=== PATIENT | male | born 1960 | race Caucasian/White ===

== ENCOUNTER 2017-02-25 11:36 | Inpatient (IN) | payer SELFPAY ==
[~2017-02-25] VITALS: Ht 182.9 cm; Wt 98.5 kg
[~2017-02-25 11:36] MED LIST: AMLO5TAB2 PO; ASPI325T4 PO; ATOR40TA59 PO; CARV6.25 PO; CITA40TA12 PO; CLOP75TA27 PO; GABA-585 PO; GLIM2TAB2 PO; ISOS60TA2 PO; LEVO150T5 PO; LIRA0.6P2 SQ; LISI-334 PO; MAGN400T3 PO; METF-620 PO; OMEG1CAP38 PO; OXYC5CAP3 PO; PANT40TA5 PO; RANO10002 PO; SIMV20TA3 PO
--- NOTE | 2017-02-25 11:46 | PHYS DOC ---
Adult General HPI HPI Patient is a 56 year old male presenting to the emergency department for evaluation of chest pain that started approximately 10:00 this morning while he was getting dressed and ready for his day. He says that it is a pressure in the center of the chest that made him short of breath diaphoretic and nauseated. He was given nitroglycerin which took his pain from intense down to a 5. 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 Patient was given 325 mg of aspirin by EMS. He was admitted to this hospital last week for a left thalamic stroke. Review of Systems Review of Systems Constitutional: Denies fever or chills [] Eyes: Denies change in visual acuity, redness, or eye pain [] HENT: Denies nasal congestion or sore throat [] Respiratory: Denies cough. + shortness of breath [] Cardiovascular: + CP GI: Denies abdominal pain. + nausea. No vomiting, bloody stools or diarrhea [] : Denies dysuria or hematuria [] Musculoskeletal: Denies back pain or joint pain [] Integument: Denies rash or skin lesions [] Neurologic: Denies headache, focal weakness or sensory changes [] Current Medications Current Medications Current Medications Medications (Trade) Dose Ordered Sig/[facility] Start Time Stop Time Status Last Admin Dose Admin Morphine Sulfate 5 mg 1X ONCE 02/25/17 12:00 02/25/17 12:01 DC 02/25/17 12:38 5 MG Allergies Allergies Allergies Coded Allergies Type Severity Reaction Last Updated Verified No Known Drug Allergies 02/17/17 No Physical Exam Physical Exam Constitutional: Well developed, well nourished, no acute distress, non-toxic appearance. [] HENT: Normocephalic, atraumatic, bilateral external ears normal, oropharynx moist, no oral exudates, nose normal. [] Eyes: PERRLA, EOMI, conjunctiva normal, no discharge. [] Neck: Normal range of motion, no tenderness, supple, no stridor. [] Cardiovascular:Heart rate regular rhythm, no murmur [] Lungs & Thorax: Bilateral breath sounds clear to auscultation [] Abdomen: Bowel sounds normal, soft, no tenderness, no masses, no pulsatile masses. [] Skin: Warm, dry, no erythema, no rash. [] Back: No tenderness, no CVA tenderness. [] Extremities: No tenderness, no cyanosis, no clubbing, ROM intact, no edema. [] Neurologic: Alert and oriented X 3, normal motor function, normal sensory function, no focal deficits noted. [] Current Patient Data Vital Signs Vital Signs Date Time Temp Pulse Resp B/P (MAP) Pulse Ox O2 Delivery O2 Flow Rate FiO2 02/25/17 12:10 56 12 169/101 (123) 98 Room Air 02/25/17 11:36 97.6 97.6 Lab Values Laboratory Tests Test 02/25/17 11:49 02/25/17 11:53 White Blood Count 6.3 x10^3/uL (4.0-11.0) Red Blood Count 5.29 x10^6/uL (4.30-5.70) Hemoglobin 15.3 g/dL (13.0-17.5) Hematocrit 46.5 % (39.0-53.0) Mean Corpuscular Volume 88 fL (79-100) Mean Corpuscular Hemoglobin 29 pg (25-35) Mean Corpuscular Hemoglobin Concent 33 g/dL (31-37) Red Cell Distribution Width 14.8 % (11.5-14.5) H Platelet Count 223 x10^3/uL (140-400) Neutrophils (%) (Auto) 60 % (31-73) Lymphocytes (%) (Auto) 29 % (24-48) Monocytes (%) (Auto) 10 % (0-9) H Eosinophils (%) (Auto) 1 % (0-3) Basophils (%) (Auto) 0 % (0-3) Neutrophils # (Auto) 3.8 x10^3uL (1.8-7.7) Lymphocytes # (Auto) 1.8 x10^3/uL (1.0-4.8) Monocytes # (Auto) 0.6 x10^3/uL (0.0-1.1) Eosinophils # (Auto) 0.1 x10^3/uL (0.0-0.7) Basophils # (Auto) 0.0 x10^3/uL (0.0-0.2) Prothrombin Time 12.4 SEC (11.7-14.0) Prothrombin Time INR 1.0 (0.8-1.1) PTT 30 SEC (24-38) Sodium Level 138 mmol/L (136-145) Potassium Level 4.8 mmol/L (3.5-5.1) Chloride Level 100 mmol/L (98-107) Carbon Dioxide Level 27 mmol/L (21-32) Anion Gap 11 (6-14) Blood Urea Nitrogen 23 mg/dL (8-26) Creatinine 1.3 mg/dL (0.7-1.3) Estimated GFR (Cockcroft-Gault) 57.3 BUN/Creatinine Ratio 18 (6-20) Glucose Level 190 mg/dL (70-99) H Calcium Level 9.4 mg/dL (8.5-10.1) Magnesium Level Pending Total Bilirubin Pending Aspartate Amino Transferase (AST) Pending Alanine Aminotransferase (ALT) Pending Alkaline Phosphatase Pending Creatine Kinase Pending Total Protein Pending Albumin Pending Albumin/Globulin Ratio Pending Lipase Pending Ethyl Alcohol Level < 10 mg/dL (0-10) POC Troponin I 0.00 ng/ml (<0.08) Laboratory Tests 02/25/17 11:49 Laboratory Tests 02/25/17 11:49 EKG EKG Sinus bradycardia at 53 bpm with leftward axis no obvious ST elevation or depression with normal T waves. Radiology/Procedures Radiology/Procedures EXAM: Chest, single view. HISTORY: Pain. COMPARISON: 03/26/2010. FINDINGS: Frontal views of the chest are obtained. There is no infiltrate, effusion or pneumothorax. There are a few scattered granulomas. The heart is normal in size. IMPRESSION: No acute pulmonary finding. DICTATED and SIGNED BY: DEYA GRIDER MD DATE: 02/25/17 8447 Course & Med Decision Making Course & Med Decision Making Patient with symptoms typical for cardiac disease. Given patient has strong cardiac history and has typical symptoms he will be admitted to the hospital for further observation and treatment. Dragon Disclaimer Dragon Disclaimer This electronic medical record was generated, in whole or in part, using a voice recognition dictation system. Departure Departure Impression: Primary Impression: Chest pain Additional Impression: Hypertensive urgency Disposition: ADMITTED INPATIENT Admitting Physician: Addi Padilla Condition: STABLE Referrals: UNKNOWN PCP NAME (PCP) Problem Qualifiers Primary Impression: Chest pain Chest pain type: unspecified Qualified Codes: R07.9 - Chest pain, unspecified EUGENIO CARTY DO February 25, 2017 11:46
--- NOTE | 2017-02-25 11:50 | EKG ---
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
[2017-02-25] MEDS ORDERED: MORPHINE SULFATE 10 MG/ML VIAL. IV ONE (12:00)
--- NOTE | 2017-02-25 12:12 | RAD ---
EXAM: Chest, single view. HISTORY: Pain. COMPARISON: 03/26/2010. FINDINGS: Frontal views of the chest are obtained. There is no infiltrate, effusion or pneumothorax. There are a few scattered granulomas. The heart is normal in size. IMPRESSION: No acute pulmonary finding.
[2017-02-25 12:38] LABS: BASO % 0 % (0-3); EOS % 1 % (0-3); HEMATOCRIT 46.5 % (39.0-53.0); HEMOGLOBIN 15.3 g/dL (13.0-17.5); LYMPH # 1.8 x10^3/uL (1.0-4.8); LYMPH % 29 % (24-48); MEAN CORPUSCULAR HEMOGLOBIN 29 pg (25-35); MEAN CORPUSCULAR HGB CONC 33 g/dL (31-37); MEAN CORPUSCULAR VOLUME 88 fL (79-100); MONO % 10 % (0-9); NEUT % 60 % (31-73); PLATELET COUNT 223 x10^3/uL (140-400); RED BLOOD COUNT 5.29 x10^6/uL (4.30-5.70); RED CELL DISTRIBUTION WIDTH 14.8 % (11.5-14.5); WHITE BLOOD COUNT 6.3 x10^3/uL (4.0-11.0)
[2017-02-25 12:51] LABS: PROTHROMBIN TIME PATIENT 12.4 SEC (11.7-14.0)
[2017-02-25 12:57] LABS: CALCIUM 9.4 mg/dL (8.5-10.1); CREATININE 1.3 mg/dL (0.7-1.3); GFR 57.3; POTASSIUM 4.8 mmol/L (3.5-5.1)
[2017-02-25 13:03] LABS: ALBUMIN 3.6 g/dL (3.4-5.0); MAGNESIUM 1.5 mg/dL (1.8-2.4); TOTAL BILIRUBIN 0.4 mg/dL (0.2-1.0); TOTAL PROTEIN 7.2 g/dL (6.4-8.2)
--- NOTE | 2017-02-25 13:12 | ACF ---
Admission Forms Criteria CARDIOLOGY GRG Clinical Indications for Admission to Inpatient Care ( Place 'X' for any and all applicable criteria): Hospital admission is needed for appropriate care of the patient because of ANY ONE of the following (1): [ ] I. Hemodynamic instability as indicated by ALL of the following (1)(2)(3) (4)(5) [ ]a) Vital signs or other findings not as expected for chronic patient condition or baseline [ ]b) Instability indicated by ANY ONE of the following: [ ]i) Hypotension [ ]ii) Symptomatic Tachycardia unresponsive to treatment ( e.g., analgesia, fluids, sedation as indicated) [ ]iii) Inadequate perfusion indicated by ANY ONE of the following: [ ] 1) Lactic acidosis (> 2 mmol/L) [ ] 2) New abnormal capillary refill (> 3 seconds) [ ] 3) Reduced urine output [ ] 4) New altered mental status [ ]iv) Orthostatic vital sign changes unresponsive to treatment (e.g., fluids) [ ]v) IV inotropic or vasopressor medication required to maintain adequate blood pressure or perfusion [ ] II. Severe heart failure as indicated by ANY ONE of the following(17)(18) [ ]a) Respiratory distress [ ]b) Hypotension [ ]c) Anasarca (refractory to outpatient therapy) [ ]d) Cardiac arrhythmias of immediate concern [ ]e) Myocardial ischemia [ ] III. Cardiac arrhythmias or findings of immediate concern indicated by ANY ONE of the following (19)(20): [ ] a) Heart rhythms that are inherently dangerous or unstable indicated by ANY ONE of the following (21)(22)(23): [ ] i) Resuscitated ventricular fibrillation or cardiac arrest [ ] ii) Ventricular escape rhythm [ ] iii) Sustained ventricular tachycardia (30 seconds or more of ventricular rhythm at greater than 100 beats per minute) [ ] iv) Nonsustained ventricular tachycardia and ANY ONE of the following: [ ] 1) Suspected cardiac ischemia as cause or consequence of ventricular tachycardia [ ] 2) In setting of acute myocarditis [ ] b) Unstable cardiac conduction defects indicated by ANY ONE of the following(23)(24)(25) [ ] i) Type II second-degree atrioventricular block [ ]ii) Third-degree atrioventricular block [ ]iii) New-onset left bundle branch block with suspected myocardial ischemia [ ]c) Any heart rhythm and ANY ONE of the following (21)(22)(26)(27) (28) [ ] i) Continuous long-term ECG monitoring needed (e.g., initiation of drug requiring monitoring for more than 24 hours) [ ] ii) Patient has automatic implanted cardioverter defibrillator that is repeatedly firing, malfunctioning, or in need of immediate adjustment of settings beyond the scope of ambulatory or observation care [ ]d) Heart rhythms of concern due to ANY ONE of the following: [ ] i) Hypotension [ ] ii) Respiratory distress [ ] iii) Association with other significant symptoms (e.g., bradycardia with syncope or ongoing dizziness, supraventricular tachycardia with chest pain (14)(15)(17) [ ] IV. Monitoring for cardiac contusion beyond the scope of observation care needed [A](30)(31)(32) [ ] V. Surgical or device complication (e.g., valve replacement complication , pacemaker dysfunction) (35)(41)(44)(45)(46) [ ] . Inpatient palliative care needed. [B](49) Also use Inpatient Palliative Care Criteria [ ] VII. Nonbacterial thrombotic (marantic) endocarditis (36)(43)(47)(48) [X] VIII. Cardiology condition, symptom, or finding for which emergency and observation care has failed or are not considered appropriate. [ ] IX. Acute valvular disease requiring inpatient as indicated by ANY ONE of the following (41) [ ]a) Acute valvular regurgitation (42) [ ]b) Noninfectious valvulitis (43) [ ]c) Obstructive valve thrombosis [ ]d) Paravalvular leak [ ]e) Other significant valvular disorder remaining after emergency or observation level of care (as appropriate) [ ]X. Pericardial disease requiring inpatient treatment as indicated by ANY ONE of the following (33)(34)(35)(36)(37) [ ]a) Suspected tamponade (38)(39)(40) [ ]b) Hemopericardium [ ]c) Other significant pericardial disorder remaining after emergency or observation level of care (as appropriate) [ ] XI. Cardiac ischemia beyond scope of emergency and observation care. [ ] XII. Hypertension requiring inpatient treatment as indicated by ANY ONE of the following (6)(7)(8) [ ]a) SBP greater than 220 mm Hg or DBP greater than 120 mmHg despite treatment [ ]b) SBP greater than 140 mm Hg or DBP greater than 100 mm Hg with evidence of acute end organ damage as indicated by ANY ONE of the following [ ] i) Encephalopathy [ ] ii) Acute renal failure as indicated by new onset of ANY ONE of the following (9)(10)(11)(12)(13) [ ]1) 3-fold rise in serum creatinine from baseline [ ]2) Serum creatinine greater than 4 mg/dL ( 354 micromoles/L) with acute rise greater than 0.5 mg/dL (44.2 micromoles/L) [ ]3) Reduction of more than 75% in estimated glomerular filtration rate from baseline [ ]4) Estimated glomerular filtration rate less than 35 mL/min/1.73m2 (0.59 mL/sec/1.73m2) in child up to 18 years of age [ ]5) Cessation of urine output indicated by ALL of the following [ ]A. Adequate volume status [ ]B. Inadequate urine output as indicated by ANY ONE of the following [ ]a. Urine output less than 0.3 mL/kg/hr for 24 hours [ ]b. Anuria (urine output less than 0.1 mL/kg/hr) for 12 hours [ ] iii) Aortic dissection [ ] iv) Myocardial Ischemia [ ] v) Left ventricular heart failure [ ]vi) Retinal Hemorrhage [ ]vii) Other significant finding [ ]c) Hypertension in child requiring inpatient treatment as indicated by ALL of the following(14)(15)(16) [ ] i) Outpatient treatment not effective, not available, or not appropriate [ ]ii) SBP or DBP greater than 95th percentile for age [ ]iii) Evidence of acute end organ damage as indicated by ANY ONE of the following [ ]1) Altered mental status [ ]2) Acute renal failure as indicated by new onset of ANY ONE of the following(9)(10)(11)(12)(13) [ ]A. 3-fold rise in serum creatinine from baseline [ ]B. Serum creatinine greater than 4 mg/dL (354 micromoles/L) with acute rise greater than 0.5 mg/dL (44.2 micromoles/L) [ ]C. Reduction of more than 75% in estimated glomerular filtration rate from baseline [ ]D. Estimated glomerular filtration rate less than 35 mL/min/1.73m2 (0.59 mL/sec/1.73m2) in child up to 18 years of age [ ]E. Cessation of urine output indicated by ALL of the following [ ]a. Adequate volume status [ ]b. Inadequate urine output as indicated by ANY ONE of the following [ ]i) Urine output less than 0.3 mL/kg/hr for 24 hours [ ]ii) Anuria ( urine output less than 0.1 mL/kg/hr) for 12 hours [ ]3) Severe headache [ ]4) Visual disturbance [ ]5) Retinal hemorrhage [ ]6) Other significant finding [ ]XIII. Complications of transplanted heart indicated by ANY ONE of the following(61): [ ]a) Acute graft rejection requiring inpatient management (eg, intravenous immunosuppression)(62)(63) [ ]b) Acute graft heart failure indicated by ANY ONE of the following(64): [ ]i) Hemodynamic instability [ ]ii) Cardiac arrhythmias of immediate concern [ ]iii) Pulmonary edema that is very severe (eg, mechanical ventilation needed, imminent or likely, need for 100% oxygen to keep oxygen saturation above 90%) [ ]iv) Pulmonary edema that is persistent as indicated by ALL of the following: [ ]1) New need for oxygen therapy to keep oxygen saturation above 90% (or increased FiO2 need from baseline) [ ]2) Has not improved sufficiently with emergency department or observation care IV diuretics or other heart failure treatments[E] [ ]v) Altered mental status that is severe or persistent [ ]vi) Increased creatinine (new on laboratory test) with reduction of more than 50% in estimated glomerular filtration rate from baseline [ ]vii) Progressively (ongoing) rising creatinine (known from past laboratory test) with reduction of more than 25% in estimated glomerular filtration rate from baseline [ ]viii) Acute renal failure [ ]ix) Acute peripheral ischemia (eg, examination shows pulseless, cool, mottled, or cyanotic extremity) [ ]x) Pulmonary artery catheter monitoring needed [ ]xi) Other sign or symptom of heart failure requiring inpatient treatment (ie, too severe or not responsive to outpatient and observation care treatment) [ ]c) Infection requiring inpatient management (eg, Hemodynamic instability, need for intravenous antimicrobial treatment)(66)(67)(68)(69)(70) [ ]d) Cardiac allograft vasculopathy requiring inpatient management ( eg evidence of cardiac ischemia)(71) [ ]e) Other complication of transplanted heart (eg, stroke, severe pulmonary hypertension, severe valvular dysfunction) requiring inpatient management(72) The original [facility] content created by [facility] has been revised. The portions of the content which have been revised are identified through the use of italic text or in bold, and [facility] has neither reviewed nor approved the modified material. All other unmodified content is copyright [facility]. Please see references footnoted in the original [facility] edition 2016 Admission Criteria Met?: Yes TORI RENEE February 25, 2017 13:12
[2017-02-25 13:30] VITALS: BP 150/91
--- NOTE | 2017-02-25 14:36 | PDOC1 ---
History and Physical Date of Admission Date of Admission 02/25/17 Identification/Chief Complaint Chief Complaint chest pain Problems: Source Source: Chart review, Patient History of Present Illness History of Present Illness Mr. Perla is a 56 old M, who was dced here last week for 8mm left thalamic acute ischemic stroke, for chest pain for today. echo, carotid US not significant. Pt had NC before with stents, last stent was 3 years ago, another NC 1.5 years ago wo stent. He said since he went home last week, cont having tired, stable mild right side weakness, mainly right leg. Pt started to feel left side chest pain, when he sat down from the bathroom, the chest pain feels heavy, radiating to back, with left arm numbness, diaphoresis, sob, vertigo, N/V, 6/10. EMS was called, BP 190. Pt was given asa, nitro and pain is 3/10 now. EKG neg for acute change, troponin neg. Past Medical History Past Medical History cad, htn dm2 stroke Past Surgical History Past Surgical History: No pertinent history Family History Family History: Hypertension Social History ALCOHOL: none Drugs: None Current Problem List Problem List Problems Medical Problems: (1) Hypertensive urgency Status: Acute Current Medications Current Medications Current Medications Medications (Trade) Dose Ordered Sig/[facility] Start Time Stop Time Status Last Admin Dose Admin Morphine Sulfate 5 mg 1X ONCE 02/25/17 12:00 02/25/17 12:01 DC 02/25/17 12:38 5 MG Allergies Allergies Allergies Coded Allergies Type Severity Reaction Last Updated Verified No Known Drug Allergies 02/17/17 No ROS Review of System CONSTITUTIONAL: No fever or chills EYES: No recent changes SKIN: No rash or itching CARDIOVASCULAR: No chest pain, syncope, palpitations, or edema RESPIRATORY: No SOB or cough GASTROINTESTINAL: No nausea, vomiting or abdominal pain NEUROLOGICAL: No headaches or weakness ENDOCRINE: No cold or heat intolerance GENITOURINARY: No urgency or frequency of urination MUSCULOSKELETAL: No back pain or joint pain LYMPHATICS: No enlarged lymph nodes PSYCHIATRIC: No anxiety or depression Physical Exam Physical Exam GEN.: No apparent distress. Alert and oriented. HEENT: Head is normocephalic, atraumatic NECK: Supple. LUNGS: Clear to auscultation. HEART: RRR, S1, S2 present. Peripheral pulses intact ABDOMEN: Soft, nontender. Positive bowel sounds. EXTREMITIES: Without any cyanosis. right side strength, upper ext 4/5, lower ext 3/5. left side 5/5 NEUROLOGIC: Normal speech, normal tone PSYCHIATRIC: Normal affect, normal mood. SKIN: No ulcerations Vitals Vitals Vital Signs Date Time Temp Pulse Resp B/P (MAP) Pulse Ox O2 Delivery O2 Flow Rate FiO2 02/25/17 13:30 97.7 60 20 150/91 (110) 96 Room Air 97.7 Labs Labs Laboratory Tests Test 02/25/17 11:49 02/25/17 11:53 White Blood Count 6.3 x10^3/uL (4.0-11.0) Red Blood Count 5.29 x10^6/uL (4.30-5.70) Hemoglobin 15.3 g/dL (13.0-17.5) Hematocrit 46.5 % (39.0-53.0) Mean Corpuscular Volume 88 fL (79-100) Mean Corpuscular Hemoglobin 29 pg (25-35) Mean Corpuscular Hemoglobin Concent 33 g/dL (31-37) Red Cell Distribution Width 14.8 % (11.5-14.5) Platelet Count 223 x10^3/uL (140-400) Neutrophils (%) (Auto) 60 % (31-73) Lymphocytes (%) (Auto) 29 % (24-48) Monocytes (%) (Auto) 10 % (0-9) Eosinophils (%) (Auto) 1 % (0-3) Basophils (%) (Auto) 0 % (0-3) Neutrophils # (Auto) 3.8 x10^3uL (1.8-7.7) Lymphocytes # (Auto) 1.8 x10^3/uL (1.0-4.8) Monocytes # (Auto) 0.6 x10^3/uL (0.0-1.1) Eosinophils # (Auto) 0.1 x10^3/uL (0.0-0.7) Basophils # (Auto) 0.0 x10^3/uL (0.0-0.2) Prothrombin Time 12.4 SEC (11.7-14.0) Prothromb Time International Ratio 1.0 (0.8-1.1) Activated Partial Thromboplast Time 30 SEC (24-38) Sodium Level 138 mmol/L (136-145) Potassium Level 4.8 mmol/L (3.5-5.1) Chloride Level 100 mmol/L (98-107) Carbon Dioxide Level 27 mmol/L (21-32) Anion Gap 11 (6-14) Blood Urea Nitrogen 23 mg/dL (8-26) Creatinine 1.3 mg/dL (0.7-1.3) Estimated GFR (Cockcroft-Gault) 57.3 BUN/Creatinine Ratio 18 (6-20) Glucose Level 190 mg/dL (70-99) Calcium Level 9.4 mg/dL (8.5-10.1) Magnesium Level 1.5 mg/dL (1.8-2.4) Total Bilirubin 0.4 mg/dL (0.2-1.0) Aspartate Amino Transf (AST/SGOT) 10 U/L (15-37) Alanine Aminotransferase (ALT/SGPT) 19 U/L (16-63) Alkaline Phosphatase 111 U/L (46-116) Creatine Kinase 34 U/L (39-308) Troponin I Quantitative < 0.017 ng/mL (0.000-0.055) VM-Tcr-O-Type Natriuretic Peptide 29 pg/mL (0-124) Total Protein 7.2 g/dL (6.4-8.2) Albumin 3.6 g/dL (3.4-5.0) Albumin/Globulin Ratio 1.0 (1.0-1.7) Lipase 131 U/L (73-393) Ethyl Alcohol Level < 10 mg/dL (0-10) Bedside Troponin I 0.00 ng/ml (<0.08) Laboratory Tests Test 02/25/17 11:49 02/25/17 11:53 White Blood Count 6.3 x10^3/uL (4.0-11.0) Red Blood Count 5.29 x10^6/uL (4.30-5.70) Hemoglobin 15.3 g/dL (13.0-17.5) Hematocrit 46.5 % (39.0-53.0) Mean Corpuscular Volume 88 fL (79-100) Mean Corpuscular Hemoglobin 29 pg (25-35) Mean Corpuscular Hemoglobin Concent 33 g/dL (31-37) Red Cell Distribution Width 14.8 % (11.5-14.5) Platelet Count 223 x10^3/uL (140-400) Neutrophils (%) (Auto) 60 % (31-73) Lymphocytes (%) (Auto) 29 % (24-48) Monocytes (%) (Auto) 10 % (0-9) Eosinophils (%) (Auto) 1 % (0-3) Basophils (%) (Auto) 0 % (0-3) Neutrophils # (Auto) 3.8 x10^3uL (1.8-7.7) Lymphocytes # (Auto) 1.8 x10^3/uL (1.0-4.8) Monocytes # (Auto) 0.6 x10^3/uL (0.0-1.1) Eosinophils # (Auto) 0.1 x10^3/uL (0.0-0.7) Basophils # (Auto) 0.0 x10^3/uL (0.0-0.2) Prothrombin Time 12.4 SEC (11.7-14.0) Prothromb Time International Ratio 1.0 (0.8-1.1) Activated Partial Thromboplast Time 30 SEC (24-38) Sodium Level 138 mmol/L (136-145) Potassium Level 4.8 mmol/L (3.5-5.1) Chloride Level 100 mmol/L (98-107) Carbon Dioxide Level 27 mmol/L (21-32) Anion Gap 11 (6-14) Blood Urea Nitrogen 23 mg/dL (8-26) Creatinine 1.3 mg/dL (0.7-1.3) Estimated GFR (Cockcroft-Gault) 57.3 BUN/Creatinine Ratio 18 (6-20) Glucose Level 190 mg/dL (70-99) Calcium Level 9.4 mg/dL (8.5-10.1) Magnesium Level 1.5 mg/dL (1.8-2.4) Total Bilirubin 0.4 mg/dL (0.2-1.0) Aspartate Amino Transf (AST/SGOT) 10 U/L (15-37) Alanine Aminotransferase (ALT/SGPT) 19 U/L (16-63) Alkaline Phosphatase 111 U/L (46-116) Creatine Kinase 34 U/L (39-308) Troponin I Quantitative < 0.017 ng/mL (0.000-0.055) LH-Tgz-G-Type Natriuretic Peptide 29 pg/mL (0-124) Total Protein 7.2 g/dL (6.4-8.2) Albumin 3.6 g/dL (3.4-5.0) Albumin/Globulin Ratio 1.0 (1.0-1.7) Lipase 131 U/L (73-393) Ethyl Alcohol Level < 10 mg/dL (0-10) Bedside Troponin I 0.00 ng/ml (<0.08) VTE Prophylaxis Ordered VTE Prophylaxis Devices: No VTE Pharmacological Prophylaxi: Yes Assessment/Plan Assessment/Plan chest pain, need to rule out unstable angina recent 8 mm left thalamic acute ischemic CVA uncontrolled HTN h/o CAD with known 4cardiac stents on ASA 325 and PLavix DM 2 Dyslipdiemia R side weakness, with stroke previous SMoker on chantix (doen to 5-6 cigs a day now) headache with h/o migraine hypomagnesemia plan: card consult cycle CE recent Echo neg lovenox 100mg aq x1 cont home meds may need cath if cont having chest pain ptot TREVA COOPER MD February 25, 2017 14:36
[2017-02-25] MEDS ORDERED: hydrALAZINE 20 MG/ML VIAL. IVP PRN (14:45)
[2017-02-25] MEDS ORDERED: DOCUSATE SODIUM 100 MG CAPSULE. PO PRN (14:45)
[2017-02-25] MEDS ORDERED: oxyCODONE IR 5 MG TABLET PO PRN (14:45)
[2017-02-25] MEDS ORDERED: ACETAMINOPHEN 325 MG TABLET. PO PRN (14:45)
[2017-02-25] MEDS ORDERED: DEXTROSE 50% 25 GM / 50ML DISP.SYRIN. IV PRN (14:45)
[2017-02-25] MEDS ORDERED: MAGNESIUM SULFATE 2GM 50 ML IV ONE (14:45)
[2017-02-25] MEDS ORDERED: ONDANSETRON PF 4 MG/2 ML VIAL. IV PRN (14:45)
[2017-02-25 14:46] VITALS: BP 130/78
[2017-02-25] MEDS: traMADol 50 MG TABLET PO PRN (15:30)
[2017-02-25] MEDS: INSULIN ASPART 300 UNITS/3 ML INSULN.PEN SQ SCH (17:00)
[2017-02-25] MEDS: GLIMEPIRIDE 2 MG TABLET. PO SCH (18:06)
[2017-02-25] MEDS: MAGNESIUM OXIDE 400 MG TABLET PO SCH (18:06)
[2017-02-25] MEDS: CARVEDILOL 6.25 MG TABLET. PO SCH (18:07)
[2017-02-25 19:25] VITALS: BP 122/73
[2017-02-25] MEDS ORDERED: SIMVASTATIN 20 MG TABLET PO SCH (21:00)
[2017-02-25] MEDS: ATORVASTATIN CALCIUM 40 MG TABLET. PO SCH (21:13)
[2017-02-25] MEDS: GABAPENTIN 100 MG CAPSULE. PO SCH (21:13)
[2017-02-25] MEDS: RANOLAZINE 500 MG TAB.ER.12H PO SCH (21:14)
[2017-02-25] MEDS: amLODIPine BESYLATE 5 MG TABLET PO SCH (21:14)
[2017-02-25] MEDS: MORPHINE SULFATE 2 MG/ML DISP.SYRIN. IV PRN (21:28)
[2017-02-25 23:05] VITALS: BP 150/87
[2017-02-26 03:10] VITALS: BP 120/76
[2017-02-26 04:21] LABS: BASO % 0 % (0-3); EOS % 1 % (0-3); HEMATOCRIT 44.7 % (39.0-53.0); HEMOGLOBIN 14.6 g/dL (13.0-17.5); LYMPH # 2.4 x10^3/uL (1.0-4.8); LYMPH % 27 % (24-48); MEAN CORPUSCULAR HEMOGLOBIN 29 pg (25-35); MEAN CORPUSCULAR HGB CONC 33 g/dL (31-37); MEAN CORPUSCULAR VOLUME 88 fL (79-100); MONO % 7 % (0-9); NEUT % 65 % (31-73); PLATELET COUNT 210 x10^3/uL (140-400); RED BLOOD COUNT 5.08 x10^6/uL (4.30-5.70); RED CELL DISTRIBUTION WIDTH 15.1 % (11.5-14.5); WHITE BLOOD COUNT 8.9 x10^3/uL (4.0-11.0)
[2017-02-26 04:46] LABS: CALCIUM 9.2 mg/dL (8.5-10.1); CREATININE 1.2 mg/dL (0.7-1.3); GFR 62.9; POTASSIUM 4.4 mmol/L (3.5-5.1)
[2017-02-26] MEDS: MAGNESIUM OXIDE 400 MG TABLET PO SCH ×3 (06:30→17:16)
[2017-02-26] MEDS: LEVOTHYROXINE 75 MCG TABLET PO SCH (06:30)
[2017-02-26 07:36] VITALS: BP 129/81
[2017-02-26] MEDS: INSULIN ASPART 300 UNITS/3 ML INSULN.PEN SQ SCH ×3 (08:00→17:20)
[2017-02-26] MEDS ORDERED: NON FORMULARY ITEM (Liraglutide (Victoza 3-Pak) 1.2 MG) SQ SCH (09:00)
[2017-02-26] MEDS: RANOLAZINE 500 MG TAB.ER.12H PO SCH ×2 (10:00→21:45)
[2017-02-26] MEDS: GLIMEPIRIDE 2 MG TABLET. PO SCH ×2 (10:01→17:16)
[2017-02-26] MEDS: amLODIPine BESYLATE 5 MG TABLET PO SCH ×2 (10:01→21:47)
[2017-02-26] MEDS: CARVEDILOL 6.25 MG TABLET. PO SCH ×2 (10:01→17:15)
[2017-02-26] MEDS: GABAPENTIN 100 MG CAPSULE. PO SCH ×2 (10:01→21:48)
[2017-02-26] MEDS: OMEGA-3 FATTY ACIDS/FISH OIL 1,000 MG CAPSULE. PO SCH (10:08)
[2017-02-26] MEDS: PANTOPRAZOLE 40 MG TABLET.DR. PO SCH (10:08)
[2017-02-26] MEDS: LISINOPRIL 20 MG TABLET PO SCH (10:08)
[2017-02-26] MEDS: ASPIRIN 325 MG TABLET PO SCH (10:09)
[2017-02-26] MEDS: CLOPIDOGREL BISULFATE 75 MG TABLET PO SCH (10:09)
[2017-02-26] MEDS: CITALOPRAM 20 MG TABLET. PO SCH (10:09)
--- NOTE | 2017-02-26 10:34 | PDOC2 ---
CONSULT Date of Consult Date of Consult DATE: 02/26/17 TIME: 10:22 Reason for Consult Reason for Consult: Chest pain Referring Physician Referring Physician: Dr. Padilla Identification/Chief Complaint Chief Complaint Chest pain Source Source: Chart review, Patient History of Present Illness Reason for Visit: 56-year-old male with history of coronary artery disease s/p multiple percutaneous interventions in the past, most recently 3 years ago by [facility] was recently treated at [facility] for acute CVA presented complaining of retrosternal chest pressure, 10/10 severity associated with diaphoresis and nausea that was slightly relieved with sublingual nitroglycerin. He denied any orthopnea/PND, palpitations or syncope. He stated that this chest pain is similar to the pain he had prior to his angioplasties. Past Medical History Past Medical History Coronary artery disease s/p multiple percutaneous interventions in the past, most recently 3 years ago at [facility] Recent admission for acute thalamic stroke Hypertension Hypothyroidism Hyperlipidemia Past Surgical History Past Surgical History: No pertinent history Family History Family History: Hypertension Social History No ALCOHOL: none Drugs: None Current Problem List Problem List Problems Medical Problems: (1) Hypertensive urgency Status: Acute Current Medications Current Medications Current Medications Morphine Sulfate 5 mg 1X ONCE IV Last administered on 02/25/17 12:38; Start 02/25/17 at 12:00; Stop 02/25/17 at 12:01; Status DC Amlodipine Besylate (Norvasc) 5 mg BID PO Last administered on 02/26/17 10:01 ; Start 02/25/17 at 21:00 Aspirin (Carmen Aspirin) 325 mg DAILY PO Last administered on 02/26/17 10:09; Start 02/26/17 at 09:00 Atorvastatin Calcium (Lipitor) 40 mg QHS PO Last administered on 02/25/17 21: 13; Start 02/25/17 at 21:00 Carvedilol (Coreg) 6.25 mg BIDWMEALS PO Last administered on 02/26/17 10:01; Start 02/25/17 at 17:00 Clopidogrel Bisulfate (Plavix) 75 mg DAILY PO Last administered on 02/26/17 10 :09; Start 02/26/17 at 09:00 Gabapentin (Neurontin) 100 mg BID PO Last administered on 02/26/17 10:01; Start 02/25/17 at 21:00 Glimepiride (Amaryl) 2 mg BIDWMEALS PO Last administered on 02/26/17 10:01; Start 02/25/17 at 17:00 Isosorbide Mononitrate (Imdur) 180 mg DAILY PO ; Start 02/26/17 at 09:00 Levothyroxine Sodium (Synthroid) 150 mcg [id number] PO Last administered on 06:30; Start 02/26/17 at 07:00 Lisinopril (Prinivil) 20 mg DAILY PO Last administered on 02/26/17 10:08; Start 02/26/17 at 09:00 Magnesium Oxide (Magnesium Oxide) 400 mg [id number] PO Last administered on 06:30; Start 02/25/17 at 18:00 Metformin HCl (Glucophage) 1,000 mg BIDWMEALS PO Last administered on 18:06; Start 02/25/17 at 17:00 Pantoprazole Sodium (Protonix) 40 mg DAILY PO Last administered on 02/26/17 10 :08; Start 02/26/17 at 09:00 Simvastatin (Zocor) 20 mg HS PO ; Start 02/25/17 at 21:00; Stop 02/25/17 at 21: 19; Status DC Citalopram Hydrobromide (CeleXA) 40 mg DAILY PO Last administered on 02/26/17 10:09; Start 02/26/17 at 09:00 Non-Formulary Medication 1.2 mg DAILY SQ ; Start 02/26/17 at 09:00; Status UNV Fish Oil (Fish Oil) 1,000 mg DAILY PO Last administered on 02/26/17 10:08; Start 02/26/17 at 09:00 Oxycodone HCl (Roxicodone) 5 mg PRN Q8HRS PRN PO PAIN; Start 02/25/17 at 14:45 Ranolazine (Ranexa) 1,000 mg BID PO Last administered on 02/26/17 10:00; Start 02/25/17 at 21:00 Acetaminophen (Tylenol) 650 mg PRN Q6HRS PRN PO FEVER; Start 02/25/17 at 14:45 Ondansetron HCl (Zofran) 4 mg PRN Q6HRS PRN IV NAUSEA/VOMITING; Start 02/25/17 at 14:45 Morphine Sulfate 2 mg PRN Q2HR PRN IV PAIN Last administered on 02/25/17 21:28 ; Start 02/25/17 at 14:45 Tramadol HCl (Ultram) 50 mg PRN Q6HRS PRN PO PAIN Last administered on 15:30; Start 02/25/17 at 14:45 Hydralazine HCl (Apresoline) 10 mg PRN Q4HRS PRN IVP ELEVATED BP, SEE COMMENTS ; Start 02/25/17 at 14:45 Docusate Sodium (Colace) 100 mg PRN DAILY PRN PO CONSTIPATION; Start 02/25/17 at 14:45 Insulin Aspart (NovoLOG) 0-9 UNITS TIDWMEALS SQ ; Start 02/25/17 at 17:00 Dextrose (Dextrose 50%-Water Syringe) 12.5 gm PRN Q15MIN PRN IV SEE COMMENTS; Start 02/25/17 at 14:45 Enoxaparin Sodium (Lovenox 100mg Syringe) 100 mg 1X ONCE SQ Last administered on 02/25/17 15:29; Start 02/25/17 at 14:45; Stop 02/25/17 at 14:46; Status DC Magnesium Sulfate/ Dextrose 50 ml @ 25 mls/hr 1X ONCE IV Last administered on 02/25/17 15:38; Start 02/25/17 at 14:45; Stop 02/25/17 at 16:44; Status DC Active Scripts Active Atorvastatin Calcium 40 Mg Tablet 40 Mg PO QHS 30 Days Reported Metformin Hcl 1,000 Mg Tablet 1,000 Mg PO BID [place] 3 Fish Oil Softgel ([place]-3 Fatty Acids/Fish Oil) 1 Each Capsule.dr 1 Each PO DAILY Plavix (Clopidogrel Bisulfate) 75 Mg Tablet 75 Mg PO DAILY Simvastatin 20 Mg Tablet 20 Mg PO HS Gabapentin 100 Mg Capsule 100 Mg PO BID Celexa (Citalopram Hydrobromide) 40 Mg Tablet 40 Mg PO DAILY Victoza 3-Mak (Liraglutide) 0.6 Mg/0.1 Ml Pen.injctr 1.2 Mg SQ DAILY Levothyroxine Sodium 150 Mcg Tablet 150 Mcg PO DAILYAC Amlodipine Besylate 5 Mg Tablet 5 Mg PO BID Lisinopril 20 Mg Tablet 20 Mg PO DAILY Ranexa (Ranolazine) 1,000 Mg Tab.er.12h 1,000 Mg PO BID Pantoprazole Sodium 40 Mg Tablet.dr 40 Mg PO DAILY Glimepiride 2 Mg Tablet 2 Mg PO BID Aspirin 325 Mg Tablet 325 Mg PO DAILY Coreg (Carvedilol) 6.25 Mg Tablet 6.25 Mg PO BIDWMEALS Oxycodone Hcl 5 Mg Capsule 5 Mg PO TID PRN Magnesium Oxide 400 Mg Tablet 400 Mg PO [id number] Isosorbide Mononitrate Er (Isosorbide Mononitrate) 60 Mg Tab.er.24h 180 Mg PO DAILY Allergies Allergies: Coded Allergies: No Known Drug Allergies (Unverified , 02/17/17) ROS PSYCHOLOGICAL ROS: No: Hallucinations Eyes: No Loss of vision HEENT: No: Epistaxis Respiratory: No: Hemoptysis, Shortness of breath Cardiovascular: yes Chest Pain, No Palpitations Gastrointestinal: No Vomiting Genitourinary: No Hematuria Neurological: No Seizures Skin: No Rash Physical Exam General: Alert, Oriented X3 HEENT: Atraumatic, PERRLA Lungs: Clear to auscultation Heart: Regular rate Abdomen: Soft, No tenderness Extremities: No edema Psych/Mental Status: Mood NL Vitals VITALS Vital Signs Date Time Temp Pulse Resp B/P (MAP) Pulse Ox O2 Delivery O2 Flow Rate FiO2 02/26/17 10:08 59 127/83 02/26/17 08:00 Nasal Cannula 2.0 02/26/17 07:36 97.8 18 97 97.8 Labs Labs Laboratory Tests Test 02/25/17 11:49 02/25/17 11:53 02/25/17 17:09 02/25/17 17:40 White Blood Count 6.3 x10^3/uL (4.0-11.0) Red Blood Count 5.29 x10^6/uL (4.30-5.70) Hemoglobin 15.3 g/dL (13.0-17.5) Hematocrit 46.5 % (39.0-53.0) Mean Corpuscular Volume 88 fL (79-100) Mean Corpuscular Hemoglobin 29 pg (25-35) Mean Corpuscular Hemoglobin Concent 33 g/dL (31-37) Red Cell Distribution Width 14.8 % (11.5-14.5) Platelet Count 223 x10^3/uL (140-400) Neutrophils (%) (Auto) 60 % (31-73) Lymphocytes (%) (Auto) 29 % (24-48) Monocytes (%) (Auto) 10 % (0-9) Eosinophils (%) (Auto) 1 % (0-3) Basophils (%) (Auto) 0 % (0-3) Neutrophils # (Auto) 3.8 x10^3uL (1.8-7.7) Lymphocytes # (Auto) 1.8 x10^3/uL (1.0-4.8) Monocytes # (Auto) 0.6 x10^3/uL (0.0-1.1) Eosinophils # (Auto) 0.1 x10^3/uL (0.0-0.7) Basophils # (Auto) 0.0 x10^3/uL (0.0-0.2) Prothrombin Time 12.4 SEC (11.7-14.0) Prothromb Time International Ratio 1.0 (0.8-1.1) Activated Partial Thromboplast Time 30 SEC (24-38) Sodium Level 138 mmol/L (136-145) Potassium Level 4.8 mmol/L (3.5-5.1) Chloride Level 100 mmol/L (98-107) Carbon Dioxide Level 27 mmol/L (21-32) Anion Gap 11 (6-14) Blood Urea Nitrogen 23 mg/dL (8-26) Creatinine 1.3 mg/dL (0.7-1.3) Estimated GFR (Cockcroft-Gault) 57.3 BUN/Creatinine Ratio 18 (6-20) Glucose Level 190 mg/dL (70-99) Calcium Level 9.4 mg/dL (8.5-10.1) Magnesium Level 1.5 mg/dL (1.8-2.4) Total Bilirubin 0.4 mg/dL (0.2-1.0) Aspartate Amino Transf (AST/SGOT) 10 U/L (15-37) Alanine Aminotransferase (ALT/SGPT) 19 U/L (16-63) Alkaline Phosphatase 111 U/L (46-116) Creatine Kinase 34 U/L (39-308) Troponin I Quantitative < 0.017 ng/mL (0.000-0.055) 0.119 ng/mL (0.000-0.055) DY-Mhw-S-Type Natriuretic Peptide 29 pg/mL (0-124) Total Protein 7.2 g/dL (6.4-8.2) Albumin 3.6 g/dL (3.4-5.0) Albumin/Globulin Ratio 1.0 (1.0-1.7) Lipase 131 U/L (73-393) Ethyl Alcohol Level < 10 mg/dL (0-10) Bedside Troponin I 0.00 ng/ml (<0.08) Glucose (Fingerstick) 112 mg/dL (70-99) Test 02/25/17 20:31 02/25/17 21:50 02/26/17 03:40 02/26/17 07:39 Glucose (Fingerstick) 145 mg/dL (70-99) 122 mg/dL (70-99) Troponin I Quantitative 0.099 ng/mL (0.000-0.055) White Blood Count 8.9 x10^3/uL (4.0-11.0) Red Blood Count 5.08 x10^6/uL (4.30-5.70) Hemoglobin 14.6 g/dL (13.0-17.5) Hematocrit 44.7 % (39.0-53.0) Mean Corpuscular Volume 88 fL (79-100) Mean Corpuscular Hemoglobin 29 pg (25-35) Mean Corpuscular Hemoglobin Concent 33 g/dL (31-37) Red Cell Distribution Width 15.1 % (11.5-14.5) Platelet Count 210 x10^3/uL (140-400) Neutrophils (%) (Auto) 65 % (31-73) Lymphocytes (%) (Auto) 27 % (24-48) Monocytes (%) (Auto) 7 % (0-9) Eosinophils (%) (Auto) 1 % (0-3) Basophils (%) (Auto) 0 % (0-3) Neutrophils # (Auto) 5.8 x10^3uL (1.8-7.7) Lymphocytes # (Auto) 2.4 x10^3/uL (1.0-4.8) Monocytes # (Auto) 0.6 x10^3/uL (0.0-1.1) Eosinophils # (Auto) 0.1 x10^3/uL (0.0-0.7) Basophils # (Auto) 0.0 x10^3/uL (0.0-0.2) Sodium Level 134 mmol/L (136-145) Potassium Level 4.4 mmol/L (3.5-5.1) Chloride Level 100 mmol/L (98-107) Carbon Dioxide Level 23 mmol/L (21-32) Anion Gap 11 (6-14) Blood Urea Nitrogen 24 mg/dL (8-26) Creatinine 1.2 mg/dL (0.7-1.3) Estimated GFR (Cockcroft-Gault) 62.9 Glucose Level 118 mg/dL (70-99) Calcium Level 9.2 mg/dL (8.5-10.1) Laboratory Tests Test 02/25/17 11:49 02/25/17 11:53 02/25/17 17:09 02/25/17 17:40 White Blood Count 6.3 x10^3/uL (4.0-11.0) Red Blood Count 5.29 x10^6/uL (4.30-5.70) Hemoglobin 15.3 g/dL (13.0-17.5) Hematocrit 46.5 % (39.0-53.0) Mean Corpuscular Volume 88 fL (79-100) Mean Corpuscular Hemoglobin 29 pg (25-35) Mean Corpuscular Hemoglobin Concent 33 g/dL (31-37) Red Cell Distribution Width 14.8 % (11.5-14.5) Platelet Count 223 x10^3/uL (140-400) Neutrophils (%) (Auto) 60 % (31-73) Lymphocytes (%) (Auto) 29 % (24-48) Monocytes (%) (Auto) 10 % (0-9) Eosinophils (%) (Auto) 1 % (0-3) Basophils (%) (Auto) 0 % (0-3) Neutrophils # (Auto) 3.8 x10^3uL (1.8-7.7) Lymphocytes # (Auto) 1.8 x10^3/uL (1.0-4.8) Monocytes # (Auto) 0.6 x10^3/uL (0.0-1.1) Eosinophils # (Auto) 0.1 x10^3/uL (0.0-0.7) Basophils # (Auto) 0.0 x10^3/uL (0.0-0.2) Prothrombin Time 12.4 SEC (11.7-14.0) Prothromb Time International Ratio 1.0 (0.8-1.1) Activated Partial Thromboplast Time 30 SEC (24-38) Sodium Level 138 mmol/L (136-145) Potassium Level 4.8 mmol/L (3.5-5.1) Chloride Level 100 mmol/L (98-107) Carbon Dioxide Level 27 mmol/L (21-32) Anion Gap 11 (6-14) Blood Urea Nitrogen 23 mg/dL (8-26) Creatinine 1.3 mg/dL (0.7-1.3) Estimated GFR (Cockcroft-Gault) 57.3 BUN/Creatinine Ratio 18 (6-20) Glucose Level 190 mg/dL (70-99) Calcium Level 9.4 mg/dL (8.5-10.1) Magnesium Level 1.5 mg/dL (1.8-2.4) Total Bilirubin 0.4 mg/dL (0.2-1.0) Aspartate Amino Transf (AST/SGOT) 10 U/L (15-37) Alanine Aminotransferase (ALT/SGPT) 19 U/L (16-63) Alkaline Phosphatase 111 U/L (46-116) Creatine Kinase 34 U/L (39-308) Troponin I Quantitative < 0.017 ng/mL (0.000-0.055) 0.119 ng/mL (0.000-0.055) ZF-Amr-X-Type Natriuretic Peptide 29 pg/mL (0-124) Total Protein 7.2 g/dL (6.4-8.2) Albumin 3.6 g/dL (3.4-5.0) Albumin/Globulin Ratio 1.0 (1.0-1.7) Lipase 131 U/L (73-393) Ethyl Alcohol Level < 10 mg/dL (0-10) Bedside Troponin I 0.00 ng/ml (<0.08) Glucose (Fingerstick) 112 mg/dL (70-99) Test 02/25/17 20:31 02/25/17 21:50 02/26/17 03:40 02/26/17 07:39 Glucose (Fingerstick) 145 mg/dL (70-99) 122 mg/dL (70-99) Troponin I Quantitative 0.099 ng/mL (0.000-0.055) White Blood Count 8.9 x10^3/uL (4.0-11.0) Red Blood Count 5.08 x10^6/uL (4.30-5.70) Hemoglobin 14.6 g/dL (13.0-17.5) Hematocrit 44.7 % (39.0-53.0) Mean Corpuscular Volume 88 fL (79-100) Mean Corpuscular Hemoglobin 29 pg (25-35) Mean Corpuscular Hemoglobin Concent 33 g/dL (31-37) Red Cell Distribution Width 15.1 % (11.5-14.5) Platelet Count 210 x10^3/uL (140-400) Neutrophils (%) (Auto) 65 % (31-73) Lymphocytes (%) (Auto) 27 % (24-48) Monocytes (%) (Auto) 7 % (0-9) Eosinophils (%) (Auto) 1 % (0-3) Basophils (%) (Auto) 0 % (0-3) Neutrophils # (Auto) 5.8 x10^3uL (1.8-7.7) Lymphocytes # (Auto) 2.4 x10^3/uL (1.0-4.8) Monocytes # (Auto) 0.6 x10^3/uL (0.0-1.1) Eosinophils # (Auto) 0.1 x10^3/uL (0.0-0.7) Basophils # (Auto) 0.0 x10^3/uL (0.0-0.2) Sodium Level 134 mmol/L (136-145) Potassium Level 4.4 mmol/L (3.5-5.1) Chloride Level 100 mmol/L (98-107) Carbon Dioxide Level 23 mmol/L (21-32) Anion Gap 11 (6-14) Blood Urea Nitrogen 24 mg/dL (8-26) Creatinine 1.2 mg/dL (0.7-1.3) Estimated GFR (Cockcroft-Gault) 62.9 Glucose Level 118 mg/dL (70-99) Calcium Level 9.2 mg/dL (8.5-10.1) Assessment/Plan Assessment/Plan 1. Unstable angina in a patient with history of coronary artery disease s/p multiple percutaneous interventions. Recent 2-D echo 02/19/17 showed normal left ventricle systolic function with EF 55%. We will proceed with cardiac catheterization and possible angioplasty tomorrow. Risks and benefits were explained and he is agreeable. Continue current medications including Plavix. 2. Hypertension: Well-controlled 3. Hyperlipidemia: Continue statin therapy 4. Diabetes mellitus type 2: Treated per IM 5. Hypothyroidism: On levothyroxine Thank you for your consultation RUSS LE MD February 26, 2017 10:34
[2017-02-26 10:35] VITALS: BP 120/76
--- NOTE | 2017-02-26 10:49 | PDOC ---
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 uncontrolled HTN h/o CAD with known 4cardiac stents on ASA 325 and PLavix DM 2 Dyslipdiemia R side weakness, with stroke previous SMoker on chantix (doen to 5-6 cigs a day now) headache with h/o migraine hypomagnesemia History of Present Illness History of Present Illness Some headache with nitro paste CP better Planned for cardiac cath ashok Dcd 1 weeks ago, never had the chance to go to OP PT No significant residual weakness from the 8 mm thalamic stroke (wont affect muscle strength that much anyways) PLAN: Tylenol or NSAId for h/a BP better NPO post MN for C ashok Vitals Vitals Vital Signs Date Time Temp Pulse Resp B/P (MAP) Pulse Ox O2 Delivery O2 Flow Rate FiO2 02/26/17 10:35 97.8 70 20 120/76 (91) 96 Room Air 97.8 02/26/17 08:00 2.0 Physical Exam General: Alert, Oriented X3 Heart: Regular rate Lungs: Clear Abdomen: Soft, No tenderness Extremities: No edema Labs LABS Laboratory Tests Test 02/25/17 11:49 02/25/17 11:53 02/25/17 17:09 02/25/17 17:40 White Blood Count 6.3 x10^3/uL (4.0-11.0) Red Blood Count 5.29 x10^6/uL (4.30-5.70) Hemoglobin 15.3 g/dL (13.0-17.5) Hematocrit 46.5 % (39.0-53.0) Mean Corpuscular Volume 88 fL (79-100) Mean Corpuscular Hemoglobin 29 pg (25-35) Mean Corpuscular Hemoglobin Concent 33 g/dL (31-37) Red Cell Distribution Width 14.8 % (11.5-14.5) Platelet Count 223 x10^3/uL (140-400) Neutrophils (%) (Auto) 60 % (31-73) Lymphocytes (%) (Auto) 29 % (24-48) Monocytes (%) (Auto) 10 % (0-9) Eosinophils (%) (Auto) 1 % (0-3) Basophils (%) (Auto) 0 % (0-3) Neutrophils # (Auto) 3.8 x10^3uL (1.8-7.7) Lymphocytes # (Auto) 1.8 x10^3/uL (1.0-4.8) Monocytes # (Auto) 0.6 x10^3/uL (0.0-1.1) Eosinophils # (Auto) 0.1 x10^3/uL (0.0-0.7) Basophils # (Auto) 0.0 x10^3/uL (0.0-0.2) Prothrombin Time 12.4 SEC (11.7-14.0) Prothromb Time International Ratio 1.0 (0.8-1.1) Activated Partial Thromboplast Time 30 SEC (24-38) Sodium Level 138 mmol/L (136-145) Potassium Level 4.8 mmol/L (3.5-5.1) Chloride Level 100 mmol/L (98-107) Carbon Dioxide Level 27 mmol/L (21-32) Anion Gap 11 (6-14) Blood Urea Nitrogen 23 mg/dL (8-26) Creatinine 1.3 mg/dL (0.7-1.3) Estimated GFR (Cockcroft-Gault) 57.3 BUN/Creatinine Ratio 18 (6-20) Glucose Level 190 mg/dL (70-99) Calcium Level 9.4 mg/dL (8.5-10.1) Magnesium Level 1.5 mg/dL (1.8-2.4) Total Bilirubin 0.4 mg/dL (0.2-1.0) Aspartate Amino Transf (AST/SGOT) 10 U/L (15-37) Alanine Aminotransferase (ALT/SGPT) 19 U/L (16-63) Alkaline Phosphatase 111 U/L (46-116) Creatine Kinase 34 U/L (39-308) Troponin I Quantitative < 0.017 ng/mL (0.000-0.055) 0.119 ng/mL (0.000-0.055) CE-Pbt-T-Type Natriuretic Peptide 29 pg/mL (0-124) Total Protein 7.2 g/dL (6.4-8.2) Albumin 3.6 g/dL (3.4-5.0) Albumin/Globulin Ratio 1.0 (1.0-1.7) Lipase 131 U/L (73-393) Ethyl Alcohol Level < 10 mg/dL (0-10) Bedside Troponin I 0.00 ng/ml (<0.08) Glucose (Fingerstick) 112 mg/dL (70-99) Test 02/25/17 20:31 02/25/17 21:50 02/26/17 03:40 02/26/17 07:39 Glucose (Fingerstick) 145 mg/dL (70-99) 122 mg/dL (70-99) Troponin I Quantitative 0.099 ng/mL (0.000-0.055) White Blood Count 8.9 x10^3/uL (4.0-11.0) Red Blood Count 5.08 x10^6/uL (4.30-5.70) Hemoglobin 14.6 g/dL (13.0-17.5) Hematocrit 44.7 % (39.0-53.0) Mean Corpuscular Volume 88 fL (79-100) Mean Corpuscular Hemoglobin 29 pg (25-35) Mean Corpuscular Hemoglobin Concent 33 g/dL (31-37) Red Cell Distribution Width 15.1 % (11.5-14.5) Platelet Count 210 x10^3/uL (140-400) Neutrophils (%) (Auto) 65 % (31-73) Lymphocytes (%) (Auto) 27 % (24-48) Monocytes (%) (Auto) 7 % (0-9) Eosinophils (%) (Auto) 1 % (0-3) Basophils (%) (Auto) 0 % (0-3) Neutrophils # (Auto) 5.8 x10^3uL (1.8-7.7) Lymphocytes # (Auto) 2.4 x10^3/uL (1.0-4.8) Monocytes # (Auto) 0.6 x10^3/uL (0.0-1.1) Eosinophils # (Auto) 0.1 x10^3/uL (0.0-0.7) Basophils # (Auto) 0.0 x10^3/uL (0.0-0.2) Sodium Level 134 mmol/L (136-145) Potassium Level 4.4 mmol/L (3.5-5.1) Chloride Level 100 mmol/L (98-107) Carbon Dioxide Level 23 mmol/L (21-32) Anion Gap 11 (6-14) Blood Urea Nitrogen 24 mg/dL (8-26) Creatinine 1.2 mg/dL (0.7-1.3) Estimated GFR (Cockcroft-Gault) 62.9 Glucose Level 118 mg/dL (70-99) Calcium Level 9.2 mg/dL (8.5-10.1) Review of Systems Review of Systems headache, no inc in CP or soa, no abd pain, diarrhea, nausea Assessment and Plan Assessmemt and Plan Problems Medical Problems: (1) Hypertensive urgency Status: Acute Problems: Comment Review of Relevant I have reviewed the following items cyndi (where applicable) has been applied. Labs Laboratory Tests Test 02/25/17 11:49 02/25/17 11:53 02/25/17 17:09 02/25/17 17:40 White Blood Count 6.3 x10^3/uL (4.0-11.0) Red Blood Count 5.29 x10^6/uL (4.30-5.70) Hemoglobin 15.3 g/dL (13.0-17.5) Hematocrit 46.5 % (39.0-53.0) Mean Corpuscular Volume 88 fL (79-100) Mean Corpuscular Hemoglobin 29 pg (25-35) Mean Corpuscular Hemoglobin Concent 33 g/dL (31-37) Red Cell Distribution Width 14.8 % (11.5-14.5) Platelet Count 223 x10^3/uL (140-400) Neutrophils (%) (Auto) 60 % (31-73) Lymphocytes (%) (Auto) 29 % (24-48) Monocytes (%) (Auto) 10 % (0-9) Eosinophils (%) (Auto) 1 % (0-3) Basophils (%) (Auto) 0 % (0-3) Neutrophils # (Auto) 3.8 x10^3uL (1.8-7.7) Lymphocytes # (Auto) 1.8 x10^3/uL (1.0-4.8) Monocytes # (Auto) 0.6 x10^3/uL (0.0-1.1) Eosinophils # (Auto) 0.1 x10^3/uL (0.0-0.7) Basophils # (Auto) 0.0 x10^3/uL (0.0-0.2) Prothrombin Time 12.4 SEC (11.7-14.0) Prothromb Time International Ratio 1.0 (0.8-1.1) Activated Partial Thromboplast Time 30 SEC (24-38) Sodium Level 138 mmol/L (136-145) Potassium Level 4.8 mmol/L (3.5-5.1) Chloride Level 100 mmol/L (98-107) Carbon Dioxide Level 27 mmol/L (21-32) Anion Gap 11 (6-14) Blood Urea Nitrogen 23 mg/dL (8-26) Creatinine 1.3 mg/dL (0.7-1.3) Estimated GFR (Cockcroft-Gault) 57.3 BUN/Creatinine Ratio 18 (6-20) Glucose Level 190 mg/dL (70-99) Calcium Level 9.4 mg/dL (8.5-10.1) Magnesium Level 1.5 mg/dL (1.8-2.4) Total Bilirubin 0.4 mg/dL (0.2-1.0) Aspartate Amino Transf (AST/SGOT) 10 U/L (15-37) Alanine Aminotransferase (ALT/SGPT) 19 U/L (16-63) Alkaline Phosphatase 111 U/L (46-116) Creatine Kinase 34 U/L (39-308) Troponin I Quantitative < 0.017 ng/mL (0.000-0.055) 0.119 ng/mL (0.000-0.055) YI-Owo-I-Type Natriuretic Peptide 29 pg/mL (0-124) Total Protein 7.2 g/dL (6.4-8.2) Albumin 3.6 g/dL (3.4-5.0) Albumin/Globulin Ratio 1.0 (1.0-1.7) Lipase 131 U/L (73-393) Ethyl Alcohol Level < 10 mg/dL (0-10) Bedside Troponin I 0.00 ng/ml (<0.08) Glucose (Fingerstick) 112 mg/dL (70-99) Test 02/25/17 20:31 02/25/17 21:50 02/26/17 03:40 02/26/17 07:39 Glucose (Fingerstick) 145 mg/dL (70-99) 122 mg/dL (70-99) Troponin I Quantitative 0.099 ng/mL (0.000-0.055) White Blood Count 8.9 x10^3/uL (4.0-11.0) Red Blood Count 5.08 x10^6/uL (4.30-5.70) Hemoglobin 14.6 g/dL (13.0-17.5) Hematocrit 44.7 % (39.0-53.0) Mean Corpuscular Volume 88 fL (79-100) Mean Corpuscular Hemoglobin 29 pg (25-35) Mean Corpuscular Hemoglobin Concent 33 g/dL (31-37) Red Cell Distribution Width 15.1 % (11.5-14.5) Platelet Count 210 x10^3/uL (140-400) Neutrophils (%) (Auto) 65 % (31-73) Lymphocytes (%) (Auto) 27 % (24-48) Monocytes (%) (Auto) 7 % (0-9) Eosinophils (%) (Auto) 1 % (0-3) Basophils (%) (Auto) 0 % (0-3) Neutrophils # (Auto) 5.8 x10^3uL (1.8-7.7) Lymphocytes # (Auto) 2.4 x10^3/uL (1.0-4.8) Monocytes # (Auto) 0.6 x10^3/uL (0.0-1.1) Eosinophils # (Auto) 0.1 x10^3/uL (0.0-0.7) Basophils # (Auto) 0.0 x10^3/uL (0.0-0.2) Sodium Level 134 mmol/L (136-145) Potassium Level 4.4 mmol/L (3.5-5.1) Chloride Level 100 mmol/L (98-107) Carbon Dioxide Level 23 mmol/L (21-32) Anion Gap 11 (6-14) Blood Urea Nitrogen 24 mg/dL (8-26) Creatinine 1.2 mg/dL (0.7-1.3) Estimated GFR (Cockcroft-Gault) 62.9 Glucose Level 118 mg/dL (70-99) Calcium Level 9.2 mg/dL (8.5-10.1) Laboratory Tests Test 02/25/17 11:49 02/25/17 11:53 02/25/17 17:09 02/25/17 17:40 White Blood Count 6.3 x10^3/uL (4.0-11.0) Red Blood Count 5.29 x10^6/uL (4.30-5.70) Hemoglobin 15.3 g/dL (13.0-17.5) Hematocrit 46.5 % (39.0-53.0) Mean Corpuscular Volume 88 fL (79-100) Mean Corpuscular Hemoglobin 29 pg (25-35) Mean Corpuscular Hemoglobin Concent 33 g/dL (31-37) Red Cell Distribution Width 14.8 % (11.5-14.5) Platelet Count 223 x10^3/uL (140-400) Neutrophils (%) (Auto) 60 % (31-73) Lymphocytes (%) (Auto) 29 % (24-48) Monocytes (%) (Auto) 10 % (0-9) Eosinophils (%) (Auto) 1 % (0-3) Basophils (%) (Auto) 0 % (0-3) Neutrophils # (Auto) 3.8 x10^3uL (1.8-7.7) Lymphocytes # (Auto) 1.8 x10^3/uL (1.0-4.8) Monocytes # (Auto) 0.6 x10^3/uL (0.0-1.1) Eosinophils # (Auto) 0.1 x10^3/uL (0.0-0.7) Basophils # (Auto) 0.0 x10^3/uL (0.0-0.2) Prothrombin Time 12.4 SEC (11.7-14.0) Prothromb Time International Ratio 1.0 (0.8-1.1) Activated Partial Thromboplast Time 30 SEC (24-38) Sodium Level 138 mmol/L (136-145) Potassium Level 4.8 mmol/L (3.5-5.1) Chloride Level 100 mmol/L (98-107) Carbon Dioxide Level 27 mmol/L (21-32) Anion Gap 11 (6-14) Blood Urea Nitrogen 23 mg/dL (8-26) Creatinine 1.3 mg/dL (0.7-1.3) Estimated GFR (Cockcroft-Gault) 57.3 BUN/Creatinine Ratio 18 (6-20) Glucose Level 190 mg/dL (70-99) Calcium Level 9.4 mg/dL (8.5-10.1) Magnesium Level 1.5 mg/dL (1.8-2.4) Total Bilirubin 0.4 mg/dL (0.2-1.0) Aspartate Amino Transf (AST/SGOT) 10 U/L (15-37) Alanine Aminotransferase (ALT/SGPT) 19 U/L (16-63) Alkaline Phosphatase 111 U/L (46-116) Creatine Kinase 34 U/L (39-308) Troponin I Quantitative < 0.017 ng/mL (0.000-0.055) 0.119 ng/mL (0.000-0.055) SP-Iwf-S-Type Natriuretic Peptide 29 pg/mL (0-124) Total Protein 7.2 g/dL (6.4-8.2) Albumin 3.6 g/dL (3.4-5.0) Albumin/Globulin Ratio 1.0 (1.0-1.7) Lipase 131 U/L (73-393) Ethyl Alcohol Level < 10 mg/dL (0-10) Bedside Troponin I 0.00 ng/ml (<0.08) Glucose (Fingerstick) 112 mg/dL (70-99) Test 02/25/17 20:31 02/25/17 21:50 02/26/17 03:40 02/26/17 07:39 Glucose (Fingerstick) 145 mg/dL (70-99) 122 mg/dL (70-99) Troponin I Quantitative 0.099 ng/mL (0.000-0.055) White Blood Count 8.9 x10^3/uL (4.0-11.0) Red Blood Count 5.08 x10^6/uL (4.30-5.70) Hemoglobin 14.6 g/dL (13.0-17.5) Hematocrit 44.7 % (39.0-53.0) Mean Corpuscular Volume 88 fL (79-100) Mean Corpuscular Hemoglobin 29 pg (25-35) Mean Corpuscular Hemoglobin Concent 33 g/dL (31-37) Red Cell Distribution Width 15.1 % (11.5-14.5) Platelet Count 210 x10^3/uL (140-400) Neutrophils (%) (Auto) 65 % (31-73) Lymphocytes (%) (Auto) 27 % (24-48) Monocytes (%) (Auto) 7 % (0-9) Eosinophils (%) (Auto) 1 % (0-3) Basophils (%) (Auto) 0 % (0-3) Neutrophils # (Auto) 5.8 x10^3uL (1.8-7.7) Lymphocytes # (Auto) 2.4 x10^3/uL (1.0-4.8) Monocytes # (Auto) 0.6 x10^3/uL (0.0-1.1) Eosinophils # (Auto) 0.1 x10^3/uL (0.0-0.7) Basophils # (Auto) 0.0 x10^3/uL (0.0-0.2) Sodium Level 134 mmol/L (136-145) Potassium Level 4.4 mmol/L (3.5-5.1) Chloride Level 100 mmol/L (98-107) Carbon Dioxide Level 23 mmol/L (21-32) Anion Gap 11 (6-14) Blood Urea Nitrogen 24 mg/dL (8-26) Creatinine 1.2 mg/dL (0.7-1.3) Estimated GFR (Cockcroft-Gault) 62.9 Glucose Level 118 mg/dL (70-99) Calcium Level 9.2 mg/dL (8.5-10.1) Medications Current Medications Morphine Sulfate 5 mg 1X ONCE IV Last administered on 02/25/17 12:38; Start 02/25/17 at 12:00; Stop 02/25/17 at 12:01; Status DC Amlodipine Besylate (Norvasc) 5 mg BID PO Last administered on 02/26/17 10:01 ; Start 02/25/17 at 21:00 Aspirin (Carmen Aspirin) 325 mg DAILY PO Last administered on 02/26/17 10:09; Start 02/26/17 at 09:00 Atorvastatin Calcium (Lipitor) 40 mg QHS PO Last administered on 02/25/17 21: 13; Start 02/25/17 at 21:00 Carvedilol (Coreg) 6.25 mg BIDWMEALS PO Last administered on 02/26/17 10:01; Start 02/25/17 at 17:00 Clopidogrel Bisulfate (Plavix) 75 mg DAILY PO Last administered on 02/26/17 10 :09; Start 02/26/17 at 09:00 Gabapentin (Neurontin) 100 mg BID PO Last administered on 02/26/17 10:01; Start 02/25/17 at 21:00 Glimepiride (Amaryl) 2 mg BIDWMEALS PO Last administered on 02/26/17 10:01; Start 02/25/17 at 17:00 Isosorbide Mononitrate (Imdur) 180 mg DAILY PO ; Start 02/26/17 at 09:00 Levothyroxine Sodium (Synthroid) 150 mcg [id number] PO Last administered on 06:30; Start 02/26/17 at 07:00 Lisinopril (Prinivil) 20 mg DAILY PO Last administered on 02/26/17 10:08; Start 02/26/17 at 09:00 Magnesium Oxide (Magnesium Oxide) 400 mg [id number] PO Last administered on 06:30; Start 02/25/17 at 18:00 Metformin HCl (Glucophage) 1,000 mg BIDWMEALS PO Last administered on 18:06; Start 02/25/17 at 17:00 Pantoprazole Sodium (Protonix) 40 mg DAILY PO Last administered on 02/26/17 10 :08; Start 02/26/17 at 09:00 Simvastatin (Zocor) 20 mg HS PO ; Start 02/25/17 at 21:00; Stop 02/25/17 at 21: 19; Status DC Citalopram Hydrobromide (CeleXA) 40 mg DAILY PO Last administered on 02/26/17 10:09; Start 02/26/17 at 09:00 Non-Formulary Medication 1.2 mg DAILY SQ ; Start 02/26/17 at 09:00; Status UNV Fish Oil (Fish Oil) 1,000 mg DAILY PO Last administered on 02/26/17 10:08; Start 02/26/17 at 09:00 Oxycodone HCl (Roxicodone) 5 mg PRN Q8HRS PRN PO PAIN; Start 02/25/17 at 14:45 Ranolazine (Ranexa) 1,000 mg BID PO Last administered on 02/26/17 10:00; Start 02/25/17 at 21:00 Acetaminophen (Tylenol) 650 mg PRN Q6HRS PRN PO FEVER; Start 02/25/17 at 14:45 Ondansetron HCl (Zofran) 4 mg PRN Q6HRS PRN IV NAUSEA/VOMITING; Start 02/25/17 at 14:45 Morphine Sulfate 2 mg PRN Q2HR PRN IV PAIN Last administered on 02/25/17 21:28 ; Start 02/25/17 at 14:45 Tramadol HCl (Ultram) 50 mg PRN Q6HRS PRN PO PAIN Last administered on 15:30; Start 02/25/17 at 14:45 Hydralazine HCl (Apresoline) 10 mg PRN Q4HRS PRN IVP ELEVATED BP, SEE COMMENTS ; Start 02/25/17 at 14:45 Docusate Sodium (Colace) 100 mg PRN DAILY PRN PO CONSTIPATION; Start 02/25/17 at 14:45 Insulin Aspart (NovoLOG) 0-9 UNITS TIDWMEALS SQ ; Start 02/25/17 at 17:00 Dextrose (Dextrose 50%-Water Syringe) 12.5 gm PRN Q15MIN PRN IV SEE COMMENTS; Start 02/25/17 at 14:45 Enoxaparin Sodium (Lovenox 100mg Syringe) 100 mg 1X ONCE SQ Last administered on 02/25/17 15:29; Start 02/25/17 at 14:45; Stop 02/25/17 at 14:46; Status DC Magnesium Sulfate/ Dextrose 50 ml @ 25 mls/hr 1X ONCE IV Last administered on 02/25/17 15:38; Start 02/25/17 at 14:45; Stop 02/25/17 at 16:44; Status DC Active Scripts Active Atorvastatin Calcium 40 Mg Tablet 40 Mg PO QHS 30 Days Reported Metformin Hcl 1,000 Mg Tablet 1,000 Mg PO BID [place] 3 Fish Oil Softgel ([place]-3 Fatty Acids/Fish Oil) 1 Each Capsule. 1 Each PO DAILY Plavix (Clopidogrel Bisulfate) 75 Mg Tablet 75 Mg PO DAILY Simvastatin 20 Mg Tablet 20 Mg PO HS Gabapentin 100 Mg Capsule 100 Mg PO BID Celexa (Citalopram Hydrobromide) 40 Mg Tablet 40 Mg PO DAILY Victoza 3-Mak (Liraglutide) 0.6 Mg/0.1 Ml Pen.injctr 1.2 Mg SQ DAILY Levothyroxine Sodium 150 Mcg Tablet 150 Mcg PO DAILYAC Amlodipine Besylate 5 Mg Tablet 5 Mg PO BID Lisinopril 20 Mg Tablet 20 Mg PO DAILY Ranexa (Ranolazine) 1,000 Mg Tab.er.12h 1,000 Mg PO BID Pantoprazole Sodium 40 Mg Tablet.dr 40 Mg PO DAILY Glimepiride 2 Mg Tablet 2 Mg PO BID Aspirin 325 Mg Tablet 325 Mg PO DAILY Coreg (Carvedilol) 6.25 Mg Tablet 6.25 Mg PO BIDWMEALS Oxycodone Hcl 5 Mg Capsule 5 Mg PO TID PRN Magnesium Oxide 400 Mg Tablet 400 Mg PO [id number] Isosorbide Mononitrate Er (Isosorbide Mononitrate) 60 Mg Tab.er.24h 180 Mg PO DAILY Vitals/I & O Vital Sign - Last 24 Hours 02/25/17 02/25/17 02/25/17 02/25/17 11:36 12:10 12:38 12:40 Temp 97.6 97.6 Pulse 57 56 60 Resp 12 12 14 14 B/P (MAP) 158/92 (114) 169/101 (123) 158/96 (116) Pulse Ox 97 98 98 O2 Delivery Room Air Room Air Room Air 02/25/17 02/25/17 02/25/17 02/25/17 13:30 14:00 14:46 15:30 Temp 97.7 98.1 97.7 98.1 Pulse 60 55 Resp 20 20 B/P (MAP) 150/91 (110) 130/78 (95) Pulse Ox 96 96 O2 Delivery Room Air Room Air Room Air Room Air 02/25/17 02/25/17 02/25/17 02/25/17 16:30 18:07 19:25 19:40 Temp 97.4 97.4 Pulse 55 58 Resp 18 B/P (MAP) 130/78 122/73 (89) Pulse Ox 96 O2 Delivery Room Air Room Air Room Air 02/25/17 02/25/17 02/25/17 02/25/17 21:14 21:14 21:28 21:58 Pulse 58 58 Resp 20 20 B/P (MAP) 122/73 122/73 Pulse Ox 96 100 O2 Delivery Room Air Room Air O2 Flow Rate 2.0 02/25/17 02/26/17 02/26/17 02/26/17 23:05 03:10 07:36 08:00 Temp 97.6 97.6 97.8 97.6 97.6 97.8 Pulse 57 56 55 Resp 18 18 18 B/P (MAP) 150/87 (108) 120/76 (91) 129/81 (97) Pulse Ox 99 100 97 O2 Delivery Room Air Nasal Cannula Nasal Cannula Nasal Cannula O2 Flow Rate 2.0 2.0 2.0 02/26/17 02/26/17 02/26/17 02/26/17 10:00 10:01 10:01 10:08 Pulse 59 59 59 59 B/P (MAP) 127/83 127/83 127/83 127/83 02/26/17 10:35 Temp 97.8 97.8 Pulse 70 Resp 20 B/P (MAP) 120/76 (91) Pulse Ox 96 O2 Delivery Room Air Intake and Output 02/25/17 02/25/17 02/26/17 14:59 22:59 06:59 Intake Total 360 ml 780 ml Output Total 300 ml 650 ml Balance 60 ml 130 ml FRENCH CARY MD February 26, 2017 10:49
[2017-02-26] MEDS: ISOSORBIDE MONONITRATE ER 60 MG TAB.ER.24H. PO SCH (12:39)
[2017-02-26] MEDS: traMADol 50 MG TABLET PO PRN (12:39)
[2017-02-26 14:33] VITALS: BP 122/75
[2017-02-26 19:35] VITALS: BP 94/56
[2017-02-26] MEDS: ATORVASTATIN CALCIUM 40 MG TABLET. PO SCH (21:47)
[2017-02-26 23:05] VITALS: BP 112/72
[2017-02-27] VITALS (16 sets, daily range): BP systolic 113–136; BP diastolic 68–83
[2017-02-27] MEDS: INSULIN ASPART 300 UNITS/3 ML INSULN.PEN SQ SCH ×3 (08:00→17:00)
[2017-02-27] MEDS: ASPIRIN 325 MG TABLET PO SCH (08:37)
[2017-02-27] MEDS: MAGNESIUM OXIDE 400 MG TABLET PO SCH ×3 (08:37→17:20)
[2017-02-27] MEDS: CARVEDILOL 6.25 MG TABLET. PO SCH ×2 (08:38→17:20)
[2017-02-27] MEDS: GLIMEPIRIDE 2 MG TABLET. PO SCH ×2 (08:38→17:19)
[2017-02-27] MEDS: LEVOTHYROXINE 75 MCG TABLET PO SCH (08:39)
[2017-02-27] MEDS: CLOPIDOGREL BISULFATE 75 MG TABLET PO SCH (08:39)
[2017-02-27] MEDS: LISINOPRIL 20 MG TABLET PO SCH (08:40)
[2017-02-27] MEDS: MORPHINE SULFATE 2 MG/ML DISP.SYRIN. IV PRN (08:56)
--- NOTE | 2017-02-27 10:01 | PDOC ---
MODERATE SEDATION ASSESSMENT RISKS/ALTERNATIVES Risks/Alternatives Risks and alternatives of this type of sedation and procedure discussed with: RISK/ALTERNATIVES: Patient H & P ON CHART H & P H & P on chart and reviewed for co-morbid conditions and appropriate labs. H&P ON CHART: Yes STATUS PREG STATUS ASSESSED: N/A MEDS/ALLERGIES REVIEWED Meds/Allergies Reviewed Medications and Allergies including time and route of recently administered narcotics and sedatives. MEDS/ALLERGIES REVIEWED: Yes ASA RATING ASA RATING: II AIRWAY ASSESSMENT Airway Assessment Airway patency, oral function limitations, presence of caps, crowns, dentures, partials, and ability to extend neck assessed. AIRWAY ASSESSMENT: Yes MALLAMPATI SCORE MALLAMPATI SCORE: II PRE-SEDATION ASSESSMENT PRE-SEDATION ASSESSMENT: Yes RUSS LE MD February 27, 2017 10:01
[2017-02-27] MEDS ORDERED: IODIXANOL 320 MG/ML 100 ML VIAL. ONE (10:05)
[2017-02-27] MEDS ORDERED: LIDOCAINE 2% 20 ML VIAL. ONE (10:05)
[2017-02-27] MEDS ORDERED: VERAPAMIL 5 MG/2 ML VIAL. ONE (10:11)
[2017-02-27] MEDS ORDERED: HEPARIN for IV BOLUS 10,000 UNIT/10 ML VIAL. ONE (10:12)
[2017-02-27] MEDS ORDERED: fentaNYL PF VIAL 100 MCG/2 ML VIAL ONE (10:12)
[2017-02-27] MEDS ORDERED: MIDAZOLAM HCL/PF 2 MG/2 ML VIAL. ONE (10:12)
[2017-02-27] MEDS ORDERED: LIDOCAINE 2% 20 ML VIAL. IJ ONE (10:30)
[2017-02-27] MEDS ORDERED: HEPARIN for IV BOLUS 10,000 UNIT/10 ML VIAL. IART ONE (10:30)
[2017-02-27] MEDS ORDERED: CONTRAST GIVEN MC PRN (10:30)
[2017-02-27] MEDS ORDERED: VERAPAMIL 5 MG/2 ML VIAL. IART ONE (10:30)
[2017-02-27] MEDS ORDERED: NITROGLYCERIN 200 MCG/2 ML SYRINGE FOR CATH/VASC LAB. IART ONE (10:30)
[2017-02-27] MEDS ORDERED: IODIXANOL 320 MG/ML 100 ML VIAL. IART ONE (10:30)
[2017-02-27] MEDS ORDERED: fentaNYL PF VIAL 100 MCG/2 ML VIAL IV ONE (10:45)
[2017-02-27] MEDS ORDERED: MIDAZOLAM HCL/PF 2 MG/2 ML VIAL. IV ONE (10:45)
[2017-02-27] MEDS ORDERED: IV 1/2 NORMAL SALINE 1,000 ML IV SCH (10:51)
--- NOTE | 2017-02-27 11:19 | CARD ---
APPROVED REPORT Procedure(s) performed: Left heart catheterization, selective coronary angiography and left ventricul ography via right transradial approach INDICATION The indication(s) include : Unstable angina. PROCEDURE NARRATIVE After explaining the risks, benefits and alternative options, informed consent was obtained from kandace ent. Patient was brought to the cardiac Hand Dry Cleaner and right wrist was prepped and draped in the usual fashion after confirming a positive modified Omar's test. Arterial access was obtained in the [facility] t radial artery and a 6 Syrian sheath was inserted. 6 Syrian JL 3.5 and 6 Syrian Milton catheters we re used to perform selective angiography of the left and right coronary arteries. 6 Syrian pigtail c atheter was used to perform left ventriculography. Patient tolerated the procedure well. Hemostasis was achieved using TR band. There were no immediate complications. The following findings were not ed. FINDINGS 1. Hemodynamics: Left ventricular end-diastolic pressure of 10 mmHg. No pullback gradient across th e aortic valve. 2. Left ventriculography: Normal left ventricle systolic function with ejection fraction estimated at 55%. No significant mitral regurgitation seen. 3. Coronary angiography: a. The left main coronary artery arose from the left sinus of Valsalva, gave rise to the left anteri or descending and left circumflex arteries and did not show any significant stenosis. b. The left anterior descending artery showed widely patent stents in the mid and distal segments. c. The left circumflex artery showed chronic total occlusion of a small second obtuse marginal branc h with faint reconstitution from left to left collaterals. d. The right coronary artery was a large and dominant vessel arising from the right sinus of Valsalv a that showed widely patent stents in the mid and mid to distal segments. Conclusion 1. Widely patent previously placed stents in the right coronary and left anterior descending arterie s. 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 2. Normal left ventricle systolic function with ejection fraction estimated at 55%. Recommendations Medical Therapy
--- NOTE | 2017-02-27 11:29 | PDOC3 ---
Discharge Summary Visit Information Date of Admission: February 25, 2017 Date of Discharge: February 27, 2017 Admitting Diagnosis Comment: chest pain, need to rule out unstable angina\ Hx CAD with 6 indwelling stents recent 8 mm left thalamic acute ischemic CVA uncontrolled HTN h/o CAD with known 4cardiac stents on ASA 325 and PLavix DM 2 Dyslipdiemia R side weakness, with stroke previous SMoker on chantix (doen to 5-6 cigs a day now) headache with h/o migraine hypomagnesemia Final Diagnosis Problems Medical Problems: (1) Hypertensive urgency Status: Acute Brief Hospital Course Allergies Allergies Coded Allergies Type Severity Reaction Last Updated Verified No Known Drug Allergies 02/17/17 No Vital Signs Vital Signs Date Time Temp Pulse Resp B/P (MAP) Pulse Ox O2 Delivery O2 Flow Rate FiO2 02/27/17 10:52 62 115/79 02/27/17 10:45 12 96 Nasal Cannula 2.0 02/27/17 07:00 97.9 97.9 Lab Results Laboratory Tests Test 02/25/17 11:49 02/25/17 11:53 02/25/17 17:09 02/25/17 17:40 White Blood Count 6.3 x10^3/uL (4.0-11.0) Red Blood Count 5.29 x10^6/uL (4.30-5.70) Hemoglobin 15.3 g/dL (13.0-17.5) Hematocrit 46.5 % (39.0-53.0) Mean Corpuscular Volume 88 fL (79-100) Mean Corpuscular Hemoglobin 29 pg (25-35) Mean Corpuscular Hemoglobin Concent 33 g/dL (31-37) Red Cell Distribution Width 14.8 % (11.5-14.5) Platelet Count 223 x10^3/uL (140-400) Neutrophils (%) (Auto) 60 % (31-73) Lymphocytes (%) (Auto) 29 % (24-48) Monocytes (%) (Auto) 10 % (0-9) Eosinophils (%) (Auto) 1 % (0-3) Basophils (%) (Auto) 0 % (0-3) Neutrophils # (Auto) 3.8 x10^3uL (1.8-7.7) Lymphocytes # (Auto) 1.8 x10^3/uL (1.0-4.8) Monocytes # (Auto) 0.6 x10^3/uL (0.0-1.1) Eosinophils # (Auto) 0.1 x10^3/uL (0.0-0.7) Basophils # (Auto) 0.0 x10^3/uL (0.0-0.2) Prothrombin Time 12.4 SEC (11.7-14.0) Prothromb Time International Ratio 1.0 (0.8-1.1) Activated Partial Thromboplast Time 30 SEC (24-38) Sodium Level 138 mmol/L (136-145) Potassium Level 4.8 mmol/L (3.5-5.1) Chloride Level 100 mmol/L (98-107) Carbon Dioxide Level 27 mmol/L (21-32) Anion Gap 11 (6-14) Blood Urea Nitrogen 23 mg/dL (8-26) Creatinine 1.3 mg/dL (0.7-1.3) Estimated GFR (Cockcroft-Gault) 57.3 BUN/Creatinine Ratio 18 (6-20) Glucose Level 190 mg/dL (70-99) Calcium Level 9.4 mg/dL (8.5-10.1) Magnesium Level 1.5 mg/dL (1.8-2.4) Total Bilirubin 0.4 mg/dL (0.2-1.0) Aspartate Amino Transf (AST/SGOT) 10 U/L (15-37) Alanine Aminotransferase (ALT/SGPT) 19 U/L (16-63) Alkaline Phosphatase 111 U/L (46-116) Creatine Kinase 34 U/L (39-308) Troponin I Quantitative < 0.017 ng/mL (0.000-0.055) 0.119 ng/mL (0.000-0.055) WU-Aon-P-Type Natriuretic Peptide 29 pg/mL (0-124) Total Protein 7.2 g/dL (6.4-8.2) Albumin 3.6 g/dL (3.4-5.0) Albumin/Globulin Ratio 1.0 (1.0-1.7) Lipase 131 U/L (73-393) Ethyl Alcohol Level < 10 mg/dL (0-10) Bedside Troponin I 0.00 ng/ml (<0.08) Glucose (Fingerstick) 112 mg/dL (70-99) Test 02/25/17 20:31 02/25/17 21:50 02/26/17 03:40 02/26/17 07:39 Glucose (Fingerstick) 145 mg/dL (70-99) 122 mg/dL (70-99) Troponin I Quantitative 0.099 ng/mL (0.000-0.055) White Blood Count 8.9 x10^3/uL (4.0-11.0) Red Blood Count 5.08 x10^6/uL (4.30-5.70) Hemoglobin 14.6 g/dL (13.0-17.5) Hematocrit 44.7 % (39.0-53.0) Mean Corpuscular Volume 88 fL (79-100) Mean Corpuscular Hemoglobin 29 pg (25-35) Mean Corpuscular Hemoglobin Concent 33 g/dL (31-37) Red Cell Distribution Width 15.1 % (11.5-14.5) Platelet Count 210 x10^3/uL (140-400) Neutrophils (%) (Auto) 65 % (31-73) Lymphocytes (%) (Auto) 27 % (24-48) Monocytes (%) (Auto) 7 % (0-9) Eosinophils (%) (Auto) 1 % (0-3) Basophils (%) (Auto) 0 % (0-3) Neutrophils # (Auto) 5.8 x10^3uL (1.8-7.7) Lymphocytes # (Auto) 2.4 x10^3/uL (1.0-4.8) Monocytes # (Auto) 0.6 x10^3/uL (0.0-1.1) Eosinophils # (Auto) 0.1 x10^3/uL (0.0-0.7) Basophils # (Auto) 0.0 x10^3/uL (0.0-0.2) Sodium Level 134 mmol/L (136-145) Potassium Level 4.4 mmol/L (3.5-5.1) Chloride Level 100 mmol/L (98-107) Carbon Dioxide Level 23 mmol/L (21-32) Anion Gap 11 (6-14) Blood Urea Nitrogen 24 mg/dL (8-26) Creatinine 1.2 mg/dL (0.7-1.3) Estimated GFR (Cockcroft-Gault) 62.9 Glucose Level 118 mg/dL (70-99) Calcium Level 9.2 mg/dL (8.5-10.1) Test 02/26/17 10:45 02/26/17 16:31 02/26/17 20:40 02/27/17 08:01 Glucose (Fingerstick) 192 mg/dL (70-99) 185 mg/dL (70-99) 203 mg/dL (70-99) 181 mg/dL (70-99) Laboratory Tests Test 02/26/17 16:31 02/26/17 20:40 02/27/17 08:01 Glucose (Fingerstick) 185 mg/dL (70-99) 203 mg/dL (70-99) 181 mg/dL (70-99) Brief Hospital Course Mr. Perla is a 56 old male recently dcd after having a small 8 mm thalamic infarct, SP so unable to do rehab but deficits is very minimal, admitted for CP, Mild elevation trop, underwent cardiac cath today via R radial , clean cath, COnt AC as home med, rxd for his recent stroke Pt seen and examined dc time 31 mins DipsO; home COnsults: cards Proc; cardiac cath Discharge Information Condition at Discharge: Improved, Stable Disposition/Orders: D/C to Home Scheduled Amlodipine Besylate (Amlodipine Besylate), 5 MG PO BID, (Reported) Aspirin (Aspirin), 325 MG PO DAILY, (Reported) Atorvastatin Calcium (Atorvastatin Calcium), 40 MG PO QHS Carvedilol (Coreg), 6.25 MG PO BIDWMEALS, (Reported) Citalopram Hydrobromide (Celexa), 40 MG PO DAILY, (Reported) Clopidogrel Bisulfate (Plavix), 75 MG PO DAILY, (Reported) Gabapentin (Gabapentin), 100 MG PO BID, (Reported) Glimepiride (Glimepiride), 2 MG PO BID, (Reported) Isosorbide Mononitrate (Isosorbide Mononitrate Er), 180 MG PO DAILY, (Reported) Levothyroxine Sodium (Levothyroxine Sodium), 150 MCG PO DAILYAC, (Reported) Liraglutide (Victoza 3-Mak), 1.2 MG SQ DAILY, (Reported) Lisinopril (Lisinopril), 20 MG PO DAILY, (Reported) Magnesium Oxide (Magnesium Oxide), 400 MG PO ULA807, (Reported) Metformin Hcl (Metformin Hcl), 1,000 MG PO BID, (Reported) Austin-3 Fatty Acids/Fish Oil (Austin 3 Fish Oil Softgel), 1 EACH PO DAILY, ( Reported) Pantoprazole Sodium (Pantoprazole Sodium), 40 MG PO DAILY, (Reported) Ranolazine (Ranexa), 1,000 MG PO BID, (Reported) Simvastatin (Simvastatin), 20 MG PO HS, (Reported) Scheduled PRN Oxycodone Hcl (Oxycodone Hcl), 5 MG PO TID PRN for PAIN, (Reported) FRENCH CARY MD February 27, 2017 11:29
[2017-02-27] MEDS: GABAPENTIN 100 MG CAPSULE. PO SCH (12:36)
[2017-02-27] MEDS: ISOSORBIDE MONONITRATE ER 60 MG TAB.ER.24H. PO SCH (12:37)
[2017-02-27] MEDS: OMEGA-3 FATTY ACIDS/FISH OIL 1,000 MG CAPSULE. PO SCH (12:39)
[2017-02-27] MEDS: RANOLAZINE 500 MG TAB.ER.12H PO SCH (12:39)
[2017-02-27] MEDS: PANTOPRAZOLE 40 MG TABLET.DR. PO SCH (12:39)
[2017-02-27] MEDS: amLODIPine BESYLATE 5 MG TABLET PO SCH (12:40)
[2017-02-27] MEDS: CITALOPRAM 20 MG TABLET. PO SCH (12:41)
== END 2017-02-27 19:04 | disposition home or self-care (01) | DRG 287 ==
LOC: ER 11:36 → 2 SOUTH 12:35
PROVIDERS: ADMIT Internal Medicine; ATTEND Internal Medicine
PROC: 4A023N7 Measurement of Cardiac Sampling and Pressure, Left Heart, Percutaneous Approach (ICD-10-PCS; principal; 2017-02-27)
PROC: B2111ZZ Fluoroscopy of Multiple Coronary Arteries using Low Osmolar Contrast (ICD-10-PCS; 2017-02-27)
PROC: B2151ZZ Fluoroscopy of Left Heart using Low Osmolar Contrast (ICD-10-PCS; 2017-02-27)
DX: I25.110 Atherosclerotic heart disease of native coronary artery with unstable angina pectoris (principal); I69.959 Hemiplegia and hemiparesis following unspecified cerebrovascular disease affecting unspecified side; I16.0 Hypertensive urgency; E03.9 Hypothyroidism, unspecified; E11.9 Type 2 diabetes mellitus without complications; E83.42 Hypomagnesemia; I10 Essential (primary) hypertension; I25.82 Chronic total occlusion of coronary artery; G43.909 Migraine, unspecified, not intractable, without status migrainosus; Z82.49 Family history of ischemic heart disease and other diseases of the circulatory system; Z86.73 Personal history of transient ischemic attack (TIA), and cerebral infarction without residual deficits; Z87.891 Personal history of nicotine dependence; Z79.899 Other long term (current) drug therapy
CPT/HCPCS: 36415; 71010; 80048; 80053; 82550; 82962; 83690; 83735; 83880; 84484; 85027; 85610; 85730; 93005; 93458; 96365; 96372; 96375; 99406; C1769; C1892; G0480; J1650; J1815; J2270; J3490; J7060; 99285-25

== ENCOUNTER 2017-11-01 21:40 | Inpatient (IN) | payer BC ==
[2017-11-01] MEDS ORDERED: NITROGLYCERIN SUBLINGUAL 0.4 MG BOTTLE OF 25. SL (21:45)
[2017-11-01 21:52] LABS: ADD MAN DIFF? NO
[2017-11-01 21:54] LABS: BASO # 0.1 x10^3/uL (0.0-0.2); BASO % 1 % (0-3); EOS # 0.2 x10^3/uL (0.0-0.7); EOS % 2 % (0-3); HEMATOCRIT 43.1 % (39.0-53.0); HEMOGLOBIN 14.7 g/dL (13.0-17.5); LYMPH # 2.8 x10^3/uL (1.0-4.8); LYMPH % 33 % (24-48); MEAN CORPUSCULAR HEMOGLOBIN 30 pg (25-35); MEAN CORPUSCULAR HGB CONC 34 g/dL (31-37); MEAN CORPUSCULAR VOLUME 87 fL (79-100); MONO # 0.8 x10^3/uL (0.0-1.1); MONO % 9 % (0-9); NEUT # 4.7 x10^3uL (1.8-7.7); NEUT % 56 % (31-73); PLATELET COUNT 276 x10^3/uL (140-400); RED BLOOD COUNT 4.97 x10^6/uL (4.30-5.70); RED CELL DISTRIBUTION WIDTH 13.7 % (11.5-14.5); WHITE BLOOD COUNT 8.5 x10^3/uL (4.0-11.0)
[2017-11-01 22:12] LABS: ANION GAP 8 (6-14); BLOOD UREA NITROGEN 20 mg/dL (8-26); BUN/CREATININE RATIO 17 (6-20); CALCIUM 9.4 mg/dL (8.5-10.1); CARBON DIOXIDE 28 mmol/L (21-32); CHLORIDE 99 mmol/L (98-107); CREATININE 1.2 mg/dL (0.7-1.3); GFR 62.6; GLUCOSE 307 mg/dL (70-99); SODIUM 135 mmol/L (136-145)
[2017-11-01 22:17] LABS: ALBUMIN 3.5 g/dL (3.4-5.0); ALK PHOS 142 U/L (46-116); ALT (SGPT) 20 U/L (16-63); AST (SGOT) 14 U/L (15-37); TOTAL BILIRUBIN 0.1 mg/dL (0.2-1.0); TOTAL PROTEIN 7.1 g/dL (6.4-8.2)
[2017-11-01 22:19] LABS: TROPONINI < 0.017 ng/mL (0.000-0.055)
[2017-11-01 22:23] LABS: NT-PRO BNP 55 pg/mL (0-124)
[2017-11-01] MEDS: ASPIRIN CHEWABLE 81 MG TABLET. PO (23:30)
[2017-11-02] MEDS: IV NORMAL SALINE 1000ML BAG 1,000 ML IV ×3 (00:51→15:00)
[2017-11-02] MEDS: LIDO:MAALOX:DONNATAL 1:1:1 15 ML SINGLE DOSE SWSW (02:04)
[2017-11-02] MEDS: PANTOPRAZOLE 40 MG TABLET.DR. PO ×2 (02:04→16:39)
[2017-11-02 05:22] LABS: ADD MAN DIFF? NO
[2017-11-02 05:41] LABS: BASO % 0 % (0-3); EOS % 1 % (0-3); HEMATOCRIT 42.1 % (39.0-53.0); HEMOGLOBIN 13.9 g/dL (13.0-17.5); LYMPH # 1.6 x10^3/uL (1.0-4.8); LYMPH % 20 % (24-48); MEAN CORPUSCULAR HEMOGLOBIN 29 pg (25-35); MEAN CORPUSCULAR HGB CONC 33 g/dL (31-37); MEAN CORPUSCULAR VOLUME 88 fL (79-100); MONO # 0.5 x10^3/uL (0.0-1.1); MONO % 7 % (0-9); NEUT # 5.9 x10^3uL (1.8-7.7); NEUT % 73 % (31-73); PLATELET COUNT 227 x10^3/uL (140-400); RED BLOOD COUNT 4.76 x10^6/uL (4.30-5.70); RED CELL DISTRIBUTION WIDTH 13.8 % (11.5-14.5)
[2017-11-02 06:12] LABS: ANION GAP 11 (6-14); BLOOD UREA NITROGEN 21 mg/dL (8-26); CALCIUM 9.4 mg/dL (8.5-10.1); CARBON DIOXIDE 26 mmol/L (21-32); CHLORIDE 101 mmol/L (98-107); CREATININE 1.1 mg/dL (0.7-1.3); GFR 69.2; GLUCOSE 269 mg/dL (70-99); POTASSIUM 4.5 mmol/L (3.5-5.1); SODIUM 138 mmol/L (136-145)
[2017-11-02 06:51] LABS: TROPONINI 21.505 ng/mL (0.000-0.055)
[2017-11-02] MEDS ORDERED: HEPARIN for IV BOLUS 10,000 UNIT/10 ML VIAL. IV (07:00)
[2017-11-02] MEDS ORDERED: ASPIRIN 325 MG TABLET (07:05)
[2017-11-02] MEDS: HEPARIN 25,000UTS/500ML PREMIX 500 ML IV (07:13)
[2017-11-02] MEDS ORDERED: ANTI-COAG MONITOR BY PHARMACY. MC (07:15)
[2017-11-02] MEDS: ASPIRIN CHEWABLE 81 MG TABLET. PO (07:15)
[2017-11-02] MEDS: NITROGLYCERIN SUBLINGUAL 0.4 MG BOTTLE OF 25. SL (07:48)
[2017-11-02 08:10] LABS: POC GLUCOSE 181 mg/dL (70-99)
[2017-11-02 10:09] LABS: CHOLESTEROL 188 mg/dL (0-200); HDLC 30 mg/dL (40-60); NON-HDL CHOLESTEROL 158 mg/dL (0-129); TRIGLYCERIDES 609 mg/dL (0-150)
[2017-11-02 10:20] LABS: CHOLESTEROL/HDL RATIO 6.3
[2017-11-02 11:16] LABS: THYROID STIM HORMONE (TSH) 1.409 uIU/mL (0.358-3.74)
[2017-11-02 11:23] LABS: VITAMIN-B12 194 pg/mL (247-911)
[2017-11-02] MEDS: fentaNYL PF VIAL 100 MCG/2 ML VIAL IV ×2 (11:27→15:47)
[2017-11-02 11:28] LABS: TROPONINI 36.032 ng/mL (0.000-0.055)
[2017-11-02 11:43] LABS: BARBITURATES POS (NEG); BENZODIAZEPINES NEG (NEG); CANNABINOIDS NEG (NEG); COCAINE NEG (NEG); METHADONE NEG (NEG); OPIATES NEG (NEG); PHENCYCLIDINE NEG (NEG)
[2017-11-02 11:45] LABS: AMPHETAMINE/METHAMPHETAMINE NEG (NEG); ETHANOL, URINE NEG (NEG)
[2017-11-02] MEDS: MAGNESIUM OXIDE 400 MG TABLET PO ×2 (13:00→16:39)
[2017-11-02] MEDS ORDERED: DOCUSATE SODIUM 100 MG CAPSULE. PO (13:00)
[2017-11-02] MEDS ORDERED: MORPHINE SULFATE 2 MG/ML DISP.SYRIN. IV (13:00)
[2017-11-02] MEDS ORDERED: DEXTROSE 50% 25 GM / 50ML DISP.SYRIN. IV (13:00)
[2017-11-02] MEDS ORDERED: hydrALAZINE 20 MG/ML VIAL. IVP (13:00)
[2017-11-02] MEDS ORDERED: ONDANSETRON PF 4 MG/2 ML VIAL. IV (13:00)
[2017-11-02 13:47] LABS: UNFRACTIONATED HEPARIN TESTING 0.14 IU/mL (0.30-0.70)
[2017-11-02] MEDS: OMEGA-3 FATTY ACIDS/FISH OIL 1,000 MG CAPSULE. PO (14:00)
[2017-11-02] MEDS: ASPIRIN 325 MG TABLET PO ×2 (14:00→15:50)
[2017-11-02] MEDS: CLOPIDOGREL BISULFATE 75 MG TABLET PO ×2 (14:00→15:50)
[2017-11-02] MEDS: CITALOPRAM 20 MG TABLET. PO (14:00)
[2017-11-02] MEDS ORDERED: fentaNYL PF VIAL 100 MCG/2 ML VIAL (14:07)
[2017-11-02] MEDS ORDERED: MIDAZOLAM HCL/PF 2 MG/2 ML VIAL. ×2 (14:07→15:25)
[2017-11-02] MEDS ORDERED: VERAPAMIL 5 MG/2 ML VIAL. (14:41)
[2017-11-02] MEDS ORDERED: NITROGLYCERIN 200 MCG/2 ML SYRINGE FOR CATH/VASC LAB. (14:41)
[2017-11-02] MEDS ORDERED: HEPARIN for IV BOLUS 10,000 UNIT/10 ML VIAL. (14:41)
[2017-11-02] MEDS ORDERED: BIVALIRUDIN 250 MG VIAL. IV (15:04)
[2017-11-02] MEDS ORDERED: CONTRAST GIVEN MC (15:15)
[2017-11-02] MEDS ORDERED: IODIXANOL 320 MG/ML 100 ML VIAL. ×2 (15:15→15:41)
[2017-11-02] MEDS ORDERED: diphenhydrAMINE 50 MG/ML VIAL (15:25)
[2017-11-02] MEDS: IODIXANOL 320 MG/ML 100 ML VIAL. IART (15:44)
[2017-11-02] MEDS: NITROGLYCERIN 200 MCG/2 ML SYRINGE FOR CATH/VASC LAB. IART (15:44)
[2017-11-02] MEDS: HEPARIN for IV BOLUS 10,000 UNIT/10 ML VIAL. IART (15:45)
[2017-11-02] MEDS: BIVALIRUDIN 250 MG VIAL. IV (15:45)
[2017-11-02] MEDS: VERAPAMIL 5 MG/2 ML VIAL. IART (15:46)
[2017-11-02] MEDS: MIDAZOLAM HCL/PF 2 MG/2 ML VIAL. IV (15:47)
[2017-11-02] MEDS: IV 1/2 NORMAL SALINE 1,000 ML IV (15:47)
[2017-11-02] MEDS: NITROGLYCERIN 200 MCG/2 ML SYRINGE FOR CATH/VASC LAB. ICAR (16:00)
[2017-11-02] MEDS ORDERED: ACETAMINOPHEN 325 MG TABLET. PO (16:00)
[2017-11-02 16:36] LABS: POC GLUCOSE 144 mg/dL (70-99)
[2017-11-02] MEDS: ISOSORBIDE MONONITRATE ER 30 MG TAB.ER.24H PO (16:39)
[2017-11-02] MEDS: GABAPENTIN 100 MG CAPSULE. PO ×2 (16:40→20:50)
[2017-11-02] MEDS: CARVEDILOL 6.25 MG TABLET. PO (16:40)
[2017-11-02] MEDS: LISINOPRIL 20 MG TABLET PO (16:40)
[2017-11-02] MEDS: INSULIN ASPART 300 UNITS/3 ML INSULN.PEN SQ (17:00)
[2017-11-02] MEDS: CYANOCOBALAMIN (VITAMIN B-12) 1,000 MCG/ML VIAL IM (17:00)
[2017-11-02] MEDS: traMADol 50 MG TABLET PO (19:18)
[2017-11-02] MEDS: ATORVASTATIN CALCIUM 40 MG TABLET. PO (20:50)
[2017-11-02] MEDS: RANOLAZINE 500 MG TAB.ER.12H PO (20:50)
[2017-11-02] MEDS: amLODIPine BESYLATE 5 MG TABLET PO (20:50)
[2017-11-02] MEDS: ACETAMINOPHEN 325 MG TABLET. PO (20:51)
[2017-11-02] MEDS: GLIMEPIRIDE 2 MG TABLET. PO (20:54)
[2017-11-02] MEDS ORDERED: ATORVASTATIN CALCIUM 40 MG TABLET. PO (21:00)
[2017-11-02 21:12] LABS: POC GLUCOSE 235 mg/dL (70-99)
[2017-11-03] MEDS: IV 1/2 NORMAL SALINE 1,000 ML IV (05:07)
[2017-11-03 05:18] LABS: ADD MAN DIFF? NO
[2017-11-03 05:44] LABS: BASO % 0 % (0-3); EOS # 0.1 x10^3/uL (0.0-0.7); EOS % 2 % (0-3); HEMATOCRIT 40.8 % (39.0-53.0); HEMOGLOBIN 13.3 g/dL (13.0-17.5); LYMPH # 1.8 x10^3/uL (1.0-4.8); LYMPH % 27 % (24-48); MEAN CORPUSCULAR HEMOGLOBIN 29 pg (25-35); MEAN CORPUSCULAR HGB CONC 32 g/dL (31-37); MEAN CORPUSCULAR VOLUME 88 fL (79-100); MONO # 0.7 x10^3/uL (0.0-1.1); MONO % 10 % (0-9); NEUT % 60 % (31-73); PLATELET COUNT 218 x10^3/uL (140-400); RED BLOOD COUNT 4.66 x10^6/uL (4.30-5.70); RED CELL DISTRIBUTION WIDTH 13.9 % (11.5-14.5); WHITE BLOOD COUNT 6.7 x10^3/uL (4.0-11.0)
[2017-11-03 06:04] LABS: ANION GAP 7 (6-14); BLOOD UREA NITROGEN 16 mg/dL (8-26); CALCIUM 8.8 mg/dL (8.5-10.1); CARBON DIOXIDE 29 mmol/L (21-32); CHLORIDE 98 mmol/L (98-107); GFR 77.3; GLUCOSE 238 mg/dL (70-99); POTASSIUM 3.9 mmol/L (3.5-5.1); SODIUM 134 mmol/L (136-145)
[2017-11-03] MEDS: MAGNESIUM OXIDE 400 MG TABLET PO (06:30)
[2017-11-03 08:23] LABS: POC GLUCOSE 221 mg/dL (70-99)
[2017-11-03] MEDS: PANTOPRAZOLE 40 MG TABLET.DR. PO (08:46)
[2017-11-03] MEDS: LEVOTHYROXINE 150 MCG TABLET PO (08:46)
[2017-11-03] MEDS: CITALOPRAM 20 MG TABLET. PO (08:46)
[2017-11-03] MEDS: GABAPENTIN 100 MG CAPSULE. PO (08:46)
[2017-11-03] MEDS: amLODIPine BESYLATE 5 MG TABLET PO (08:46)
[2017-11-03] MEDS: CLOPIDOGREL BISULFATE 75 MG TABLET PO (08:47)
[2017-11-03] MEDS: CARVEDILOL 6.25 MG TABLET. PO (08:47)
[2017-11-03] MEDS: LISINOPRIL 20 MG TABLET PO (08:48)
[2017-11-03] MEDS: GLIMEPIRIDE 2 MG TABLET. PO (08:48)
[2017-11-03] MEDS: ISOSORBIDE MONONITRATE ER 30 MG TAB.ER.24H PO (08:48)
[2017-11-03] MEDS: ASPIRIN 325 MG TABLET PO (08:49)
[2017-11-03] MEDS: OMEGA-3 FATTY ACIDS/FISH OIL 1,000 MG CAPSULE. PO (08:49)
[2017-11-03] MEDS: RANOLAZINE 500 MG TAB.ER.12H PO (08:49)
[2017-11-03] MEDS: CYANOCOBALAMIN (VITAMIN B-12) 1,000 MCG/ML VIAL IM (08:49)
[2017-11-03] MEDS: INSULIN ASPART 300 UNITS/3 ML INSULN.PEN SQ ×2 (09:00→12:14)
[2017-11-03] MEDS ORDERED: NON FORMULARY ITEM (Liraglutide (Victoza 3-Pak) 1.2 MG) SQ (09:00)
[2017-11-03 11:23] LABS: POC GLUCOSE 277 mg/dL (70-99)
[2017-11-03] MEDS ORDERED: CYANOCOBALAMIN (VITAMIN B-12) 1,000 MCG TABLET. PO (13:00)
== END 2017-11-03 14:12 | disposition home or self-care (01) | DRG 247 ==
LOC: ER 21:40 → 2 SOUTH 22:46
PROVIDERS: Internal Medicine
PROC: 02C03ZZ Extirpation of Matter from Coronary Artery, One Artery, Percutaneous Approach (ICD-10-PCS; 2017-11-01)
PROC: 027034Z Dilation of Coronary Artery, One Artery with Drug-eluting Intraluminal Device, Percutaneous Approach (ICD-10-PCS; principal; 2017-11-02)
PROC: 4A023N7 Measurement of Cardiac Sampling and Pressure, Left Heart, Percutaneous Approach (ICD-10-PCS; 2017-11-02)
PROC: B2111ZZ Fluoroscopy of Multiple Coronary Arteries using Low Osmolar Contrast (ICD-10-PCS; 2017-11-02)
PROC: B2151ZZ Fluoroscopy of Left Heart using Low Osmolar Contrast (ICD-10-PCS; 2017-11-02)
DX: I21.4 Non-ST elevation (NSTEMI) myocardial infarction (principal); E11.65 Type 2 diabetes mellitus with hyperglycemia; I69.351 Hemiplegia and hemiparesis following cerebral infarction affecting right dominant side; I10 Essential (primary) hypertension; E03.9 Hypothyroidism, unspecified; E78.1 Pure hyperglyceridemia; J45.909 Unspecified asthma, uncomplicated; H53.8 Other visual disturbances; I25.10 Atherosclerotic heart disease of native coronary artery without angina pectoris; M19.90 Unspecified osteoarthritis, unspecified site; H54.61 Unqualified visual loss, right eye, normal vision left eye; E66.9 Obesity, unspecified; E78.5 Hyperlipidemia, unspecified; K21.9 Gastro-esophageal reflux disease without esophagitis; F41.9 Anxiety disorder, unspecified; F17.210 Nicotine dependence, cigarettes, uncomplicated; G43.909 Migraine, unspecified, not intractable, without status migrainosus; E53.8 Deficiency of other specified B group vitamins; Z95.5 Presence of coronary angioplasty implant and graft; Z82.49 Family history of ischemic heart disease and other diseases of the circulatory system; Z79.02 Long term (current) use of antithrombotics/antiplatelets; Z68.29 Body mass index [BMI] 29.0-29.9, adult
CPT/HCPCS: 36415; 37184; 70450; 71045; 80048; 80053; 80061; 80307; 82607; 82962; 83880; 84443; 84484; 85025; 85520; 92928; 93005; 93458; 99152; 99153; 99285-25; C1725; C1757; C1769; C1874; C1892; J0583; J1644; J1815; J2250; J3010; J3420; J3490; J7030

== ENCOUNTER 2017-11-07 20:25 | Inpatient (IN) | payer BC ==
[2017-11-07] MEDS ORDERED: DEXTROSE 50% 25 GM / 50ML DISP.SYRIN. IV ×2 (21:45)
[2017-11-07] MEDS: GABAPENTIN 100 MG CAPSULE. PO ×2 (22:42)
[2017-11-07] MEDS: ATORVASTATIN CALCIUM 40 MG TABLET. PO ×2 (22:42)
[2017-11-07 22:43] LABS: TROPONINI 1.317 ng/mL (0.000-0.055)
[2017-11-07] MEDS: amLODIPine BESYLATE 5 MG TABLET PO ×2 (22:43)
[2017-11-07] MEDS: GLIMEPIRIDE 2 MG TABLET. PO ×2 (22:44)
[2017-11-07 22:48] LABS: POC GLUCOSE 307 mg/dL (70-99)
[2017-11-08 05:59] LABS: TROPONINI 1.242 ng/mL (0.000-0.055)
[2017-11-08] MEDS: LEVOTHYROXINE 150 MCG TABLET PO ×2 (06:12)
[2017-11-08] MEDS: MAGNESIUM OXIDE 400 MG TABLET PO ×6 (06:12→17:50)
[2017-11-08 07:05] LABS: ADD MAN DIFF? NO
[2017-11-08 07:12] LABS: ANION GAP 5 (6-14); BLOOD UREA NITROGEN 18 mg/dL (8-26); CALCIUM 8.8 mg/dL (8.5-10.1); CARBON DIOXIDE 31 mmol/L (21-32); CHLORIDE 103 mmol/L (98-107); GFR 77.3; GLUCOSE 229 mg/dL (70-99); POTASSIUM 4.4 mmol/L (3.5-5.1); SODIUM 139 mmol/L (136-145)
[2017-11-08 07:16] LABS: BASO % 1 % (0-3); EOS # 0.1 x10^3/uL (0.0-0.7); EOS % 2 % (0-3); HEMATOCRIT 41.1 % (39.0-53.0); HEMOGLOBIN 13.3 g/dL (13.0-17.5); LYMPH # 1.7 x10^3/uL (1.0-4.8); LYMPH % 30 % (24-48); MEAN CORPUSCULAR HEMOGLOBIN 29 pg (25-35); MEAN CORPUSCULAR HGB CONC 32 g/dL (31-37); MEAN CORPUSCULAR VOLUME 89 fL (79-100); MONO # 0.6 x10^3/uL (0.0-1.1); MONO % 11 % (0-9); NEUT # 3.2 x10^3uL (1.8-7.7); NEUT % 57 % (31-73); PLATELET COUNT 214 x10^3/uL (140-400); RED BLOOD COUNT 4.64 x10^6/uL (4.30-5.70); RED CELL DISTRIBUTION WIDTH 13.9 % (11.5-14.5); WHITE BLOOD COUNT 5.7 x10^3/uL (4.0-11.0)
[2017-11-08] MEDS ORDERED: NON FORMULARY ITEM (Liraglutide (Victoza 3-Pak) 1.2 MG) SQ ×2 (09:00)
[2017-11-08 09:09] LABS: CKMB MASS 0.9 ng/mL (0.0-3.6); CREATINE KINASE 41 U/L (39-308)
[2017-11-08 10:07] LABS: TROPONINI 0.983 ng/mL (0.000-0.055)
[2017-11-08] MEDS: OMEGA-3 FATTY ACIDS/FISH OIL 1,000 MG CAPSULE. PO ×2 (10:19)
[2017-11-08] MEDS: LISINOPRIL 20 MG TABLET PO ×2 (10:20)
[2017-11-08] MEDS: ASPIRIN 325 MG TABLET PO ×2 (10:20)
[2017-11-08] MEDS: CYANOCOBALAMIN (VITAMIN B-12) 1,000 MCG TABLET. PO ×2 (10:21)
[2017-11-08] MEDS: amLODIPine BESYLATE 5 MG TABLET PO ×4 (10:21→20:55)
[2017-11-08] MEDS: CITALOPRAM 20 MG TABLET. PO ×2 (10:21)
[2017-11-08] MEDS: GLIMEPIRIDE 2 MG TABLET. PO ×4 (10:22→20:52)
[2017-11-08] MEDS: CLOPIDOGREL BISULFATE 75 MG TABLET PO ×2 (10:22)
[2017-11-08] MEDS: GABAPENTIN 100 MG CAPSULE. PO ×4 (10:22→20:55)
[2017-11-08] MEDS: ISOSORBIDE MONONITRATE ER 30 MG TAB.ER.24H PO ×2 (10:23)
[2017-11-08] MEDS: CARVEDILOL 6.25 MG TABLET. PO ×4 (10:24→17:50)
[2017-11-08] MEDS: INSULIN ASPART 300 UNITS/3 ML INSULN.PEN SQ ×6 (10:29→17:00)
[2017-11-08 12:14] LABS: POC GLUCOSE 195 mg/dL (70-99)
[2017-11-08 12:15] LABS: POC GLUCOSE 345 mg/dL (70-99)
[2017-11-08 12:15] LABS: POC GLUCOSE 231 mg/dL (70-99)
[2017-11-08 13:34] LABS: ALBUMIN 3.2 g/dL (3.4-5.0); ALK PHOS 119 U/L (46-116); ALT (SGPT) 20 U/L (16-63); ANION GAP 10 (6-14); AST (SGOT) 12 U/L (15-37); BLOOD UREA NITROGEN 18 mg/dL (8-26); BUN/CREATININE RATIO 18 (6-20); CALCIUM 9.4 mg/dL (8.5-10.1); CARBON DIOXIDE 28 mmol/L (21-32); CHLORIDE 104 mmol/L (98-107); GFR 77.3; GLUCOSE 217 mg/dL (70-99); POTASSIUM 4.1 mmol/L (3.5-5.1); SODIUM 142 mmol/L (136-145); TOTAL BILIRUBIN 0.2 mg/dL (0.2-1.0); TOTAL PROTEIN 6.4 g/dL (6.4-8.2)
[2017-11-08 17:03] LABS: POC GLUCOSE 134 mg/dL (70-99)
[2017-11-08 20:51] LABS: POC GLUCOSE 219 mg/dL (70-99)
[2017-11-08] MEDS: ATORVASTATIN CALCIUM 40 MG TABLET. PO ×2 (20:55)
[2017-11-08] MEDS: RANOLAZINE 500 MG TAB.ER.12H PO ×2 (20:57)
[2017-11-09 05:18] LABS: ADD MAN DIFF? NO
[2017-11-09 05:45] LABS: BASO % 0 % (0-3); EOS # 0.1 x10^3/uL (0.0-0.7); EOS % 2 % (0-3); HEMATOCRIT 40.4 % (39.0-53.0); HEMOGLOBIN 13.4 g/dL (13.0-17.5); LYMPH # 1.7 x10^3/uL (1.0-4.8); LYMPH % 28 % (24-48); MEAN CORPUSCULAR HEMOGLOBIN 29 pg (25-35); MEAN CORPUSCULAR HGB CONC 33 g/dL (31-37); MEAN CORPUSCULAR VOLUME 87 fL (79-100); MONO # 0.7 x10^3/uL (0.0-1.1); MONO % 11 % (0-9); NEUT # 3.7 x10^3uL (1.8-7.7); NEUT % 59 % (31-73); PLATELET COUNT 217 x10^3/uL (140-400); RED BLOOD COUNT 4.64 x10^6/uL (4.30-5.70); RED CELL DISTRIBUTION WIDTH 13.6 % (11.5-14.5); WHITE BLOOD COUNT 6.2 x10^3/uL (4.0-11.0)
[2017-11-09] MEDS: MAGNESIUM OXIDE 400 MG TABLET PO ×4 (06:23→08:28)
[2017-11-09] MEDS: LEVOTHYROXINE 150 MCG TABLET PO ×2 (06:23)
[2017-11-09 06:27] LABS: TROPONINI 0.686 ng/mL (0.000-0.055)
[2017-11-09 08:15] LABS: POC GLUCOSE 238 mg/dL (70-99)
[2017-11-09] MEDS: ISOSORBIDE MONONITRATE ER 30 MG TAB.ER.24H PO ×2 (08:26)
[2017-11-09] MEDS: OMEGA-3 FATTY ACIDS/FISH OIL 1,000 MG CAPSULE. PO ×2 (08:27)
[2017-11-09] MEDS: RANOLAZINE 500 MG TAB.ER.12H PO ×2 (08:27)
[2017-11-09] MEDS: GABAPENTIN 100 MG CAPSULE. PO ×2 (08:28)
[2017-11-09] MEDS: CARVEDILOL 6.25 MG TABLET. PO ×2 (08:28)
[2017-11-09] MEDS: CYANOCOBALAMIN (VITAMIN B-12) 1,000 MCG TABLET. PO ×2 (08:28)
[2017-11-09] MEDS: CITALOPRAM 20 MG TABLET. PO ×2 (08:29)
[2017-11-09] MEDS: CLOPIDOGREL BISULFATE 75 MG TABLET PO ×2 (08:29)
[2017-11-09] MEDS: ASPIRIN 325 MG TABLET PO ×2 (08:29)
[2017-11-09] MEDS: GLIMEPIRIDE 2 MG TABLET. PO ×2 (08:29)
[2017-11-09] MEDS: LISINOPRIL 20 MG TABLET PO ×2 (08:29)
[2017-11-09] MEDS: amLODIPine BESYLATE 5 MG TABLET PO ×2 (08:30)
[2017-11-09] MEDS: INSULIN ASPART 300 UNITS/3 ML INSULN.PEN SQ ×2 (08:34)
== END 2017-11-09 11:50 | disposition home or self-care (01) | DRG 282 ==
LOC: 2 NORTH 20:25
PROVIDERS: Family Medicine
DX: I21.4 Non-ST elevation (NSTEMI) myocardial infarction (principal); E11.9 Type 2 diabetes mellitus without complications; E03.9 Hypothyroidism, unspecified; E53.8 Deficiency of other specified B group vitamins; E78.5 Hyperlipidemia, unspecified; F17.210 Nicotine dependence, cigarettes, uncomplicated; F41.9 Anxiety disorder, unspecified; G56.00 Carpal tunnel syndrome, unspecified upper limb; H54.40 Blindness, one eye, unspecified eye; H54.61 Unqualified visual loss, right eye, normal vision left eye; I10 Essential (primary) hypertension; I25.119 Atherosclerotic heart disease of native coronary artery with unspecified angina pectoris; M19.90 Unspecified osteoarthritis, unspecified site; K21.9 Gastro-esophageal reflux disease without esophagitis; G43.909 Migraine, unspecified, not intractable, without status migrainosus; Z80.1 Family history of malignant neoplasm of trachea, bronchus and lung; Z82.49 Family history of ischemic heart disease and other diseases of the circulatory system; Z98.61 Coronary angioplasty status; Z84.1 Family history of disorders of kidney and ureter; Z91.013 Allergy to seafood; Z86.73 Personal history of transient ischemic attack (TIA), and cerebral infarction without residual deficits
CPT/HCPCS: 36415; 71046; 71250; 74176; 80048; 80053; 82553; 82962; 84484; 85025; 93005; 93306; J1815

== ENCOUNTER → 2017-12-19 | Outpatient (CLI) | payer BC | END | disposition home or self-care (01) | LOC: US 14:43 | DX: I73.9 Peripheral vascular disease, unspecified (principal) | CPT/HCPCS: 93925 ==

== ENCOUNTER 2019-09-12 07:01 | Observation (INO) | payer OTHER ==
[2019-09-12] VITALS (13 sets, daily range): BP systolic 119–178; BP diastolic 64–92
[~2019-09-12] VITALS: Ht 182.9 cm; Wt 105.8 kg
[~2019-09-12 07:01] MED LIST changes: +ALIR150P SQ; +AMLO1TAB91 PO; +AMLO5TAB10 PO; -AMLO5TAB2 PO; +ASPI-630 PO; -ASPI325T4 PO; +ASPI325T8 PO; +ATORVASTATIN CA80 MG PO; -CLOP75TA27 PO; +CLOP75TA57 PO; +CYAN-25 PO; -GLIM2TAB2 PO; +GLIM2TAB7 PO; +INSU100I13 SQ; +INSU100I17 SQ; -MAGN400T3 PO; +MAGN400T5 PO; -METF-620 PO; +METF10007 PO; +METO100T7 PO; +NITR0.4T22 SL; +OMEP40CA45 PO; +OXYC5CAP PO; -OXYC5CAP3 PO; -PANT40TA5 PO; +PANT40TA77 PO; +SIMV20TA18 PO; -SIMV20TA3 PO; +VALS320T2 PO
[2019-09-12 07:37] LABS: HEMATOCRIT 36.7 % (39.0-53.0); HEMOGLOBIN 11.7 g/dL (13.0-17.5); RED BLOOD COUNT 4.7 x10^6/uL (4.30-5.70); WHITE BLOOD COUNT 5.1 x10^3/uL (4.0-11.0)
[2019-09-12] MEDS ORDERED: IODIXANOL 320 MG/ML 100 ML VIAL. ONE ×3 (07:40→10:56)
[2019-09-12] MEDS ORDERED: LIDOCAINE 1% Multi-Dose 20 ML VIAL. ONE (07:40)
[2019-09-12 07:44] LABS: CREATININE 1.4 mg/dL (0.7-1.3); GFR 52.1; POTASSIUM 4.6 mmol/L (3.5-5.1)
[2019-09-12] MEDS ORDERED: LIDOCAINE 1% PF 2 ML VIAL. ONE (07:50)
[2019-09-12 07:51] LABS: PROTHROMBIN TIME PATIENT 12.6 SEC (11.7-14.0)
[2019-09-12] MEDS ORDERED: fentaNYL PF VIAL 250 MCG/5 ML VIAL IV ONE (08:30)
[2019-09-12] MEDS ORDERED: IODIXANOL 320 MG/ML 100 ML VIAL. IART ONE (08:30)
[2019-09-12] MEDS ORDERED: HEPARIN for IV BOLUS 10,000 UNIT/10 ML VIAL. IART ONE (08:30)
[2019-09-12] MEDS ORDERED: NITROGLYCERIN 200 MCG/2 ML SYRINGE FOR CATH/VASC LAB. IART ONE (08:30)
[2019-09-12] MEDS ORDERED: VERAPAMIL 5 MG/2 ML VIAL. IART ONE (08:30)
[2019-09-12] MEDS ORDERED: LIDOCAINE 1% PF 2 ML VIAL. INJ ONE (08:30)
[2019-09-12] MEDS ORDERED: MIDAZOLAM HCL/PF 5 MG/5 ML VIAL. IV ONE (08:30)
[2019-09-12] MEDS ORDERED: HEPARIN for IV BOLUS 10,000 UNIT/10 ML VIAL. ONE (08:32)
[2019-09-12] MEDS ORDERED: VERAPAMIL 5 MG/2 ML VIAL. ONE (08:32)
[2019-09-12] MEDS ORDERED: NITROGLYCERIN 200 MCG/2 ML SYRINGE FOR CATH/VASC LAB. ONE (08:32)
[2019-09-12] MEDS ORDERED: FENO145T3 PO (08:34)
[2019-09-12] MEDS ORDERED: FLUT1DIS3 IH (08:34)
[2019-09-12] MEDS ORDERED: TIOT18CA IH (08:34)
[2019-09-12] MEDS ORDERED: AMLO10TA8 PO (08:34)
[2019-09-12] MEDS ORDERED: ASPI325T8 PO (08:34)
[2019-09-12] MEDS ORDERED: SERT50TA PO (08:34)
[2019-09-12] MEDS ORDERED: INSU100I13 SQ (08:34)
[2019-09-12] MEDS ORDERED: VENTOLIN HFA18 GM INH (08:34)
[2019-09-12] MEDS ORDERED: ZOLP10TA PO (08:34)
[2019-09-12] MEDS ORDERED: LOSA100T14 PO (08:34)
[2019-09-12] MEDS ORDERED: CONTRAST GIVEN. MC PRN (08:45)
[2019-09-12] MEDS ORDERED: HEPARIN for IV BOLUS 10,000 UNIT/10 ML VIAL. IV ONE (11:30)
--- NOTE | 2019-09-12 11:53 | CARD ---
MR#: [id number] Date of Study: 09/12/2019 Ordering Physician: RUSS LE, Referring Physician: RUSS LE Tech: RAYA PURVIS RTR APPROVED REPORT Technologist: RAYA PURVIS RTR Nurse: Sangeeta Barbosa R.N. Procedure(s) performed: Left heart catheterization and selective coronary angiography via left transr adial approach MODERATE SEDATION TIME: 18 MINUTES FLUORO TIME: 4.2 MIN DOSE: 48.7 GYCM2 CONTRAST: 51CC VISI INDICATION The indication(s) include : unstable angina . CS Clinical Frailty Scale [facility] Clinical Frailty Scale: Mildly Frail Heart Failure Heart Failure: No PROCEDURE NARRATIVE After explaining the risks, benefits and alternative options, informed consent was obtained from kandace ent. Patient was brought to the cardiac Steeple Jack and left wrist was prepped and draped in the usual fashion after confirming a positive modified Omar's test. Arterial access was obtained in the left radial artery and a 6 Maltese sheath was inserted. 6 Maltese JL4 and 6 Maltese JR4 catheters were used t o perform selective angiography of the left and right coronary arteries. Subsequently, aortogram with runoff was performed that would be reported separately. The following findings were noted. FINDINGS a. The left main coronary artery arose from the left sinus of Valsalva, gave rise to the left anteri or descending and left circumflex arteries and did not show any significant stenosis. b. The left anterior descending artery showed a long stent in the midsegment. There was 50% in-stent restenosis in the very distal portion of the stent. Also noted was 30% stenosis in the proximal to m idsegment. The diagonal branch showed 30% stenosis in the midsegment. c. The left circumflex artery did not show any significant stenosis. d. The right coronary artery was a large and dominant vessel arising from the right sinus of Valsalv a that showed a long patent stent in the mid and distal segments. Conclusion Nonobstructive coronary disease. 50% in-stent restenosis in the distal portion of the LAD stent. The previously placed stent in the right coronary artery was patent. Recommendations Medical Therapy Signed by : Russ Le, Electronically Approved : 09/12/2019 11:53:03
--- NOTE | 2019-09-12 11:57 | PDOC ---
MODERATE SEDATION ASSESSMENT RISKS/ALTERNATIVES Risks/Alternatives Risks and alternatives of this type of sedation and procedure discussed with: RISK/ALTERNATIVES: Patient H & P ON CHART H & P H & P on chart and reviewed for co-morbid conditions and appropriate labs. H&P ON CHART: Yes STATUS PREG STATUS ASSESSED: N/A MEDS/ALLERGIES REVIEWED Meds/Allergies Reviewed Medications and Allergies including time and route of recently administered narcotics and sedatives. MEDS/ALLERGIES REVIEWED: Yes ASA RATING ASA RATING: III AIRWAY ASSESSMENT Airway Assessment Airway patency, oral function limitations, presence of caps, crowns, dentures, partials, and ability to extend neck assessed. AIRWAY ASSESSMENT: Yes MALLAMPATI SCORE MALLAMPATI SCORE: II PRE-SEDATION ASSESSMENT PRE-SEDATION ASSESSMENT: Yes RUSS LE MD Sep 12, 2019 11:57
[2019-09-12] MEDS ORDERED: IV 1/2 NORMAL SALINE 1,000 ML IV SCH (11:58)
[2019-09-12] MEDS ORDERED: ACETAMINOPHEN 325 MG TABLET. PO PRN (12:00)
--- NOTE | 2019-09-12 13:08 | CARD ---
MR#: [id number] Date of Study: 09/12/2019 Ordering Physician: RUSS TRIVEDI, Referring Physician: RUSS TRIVEDI, Tech: RT Jose (R) DORIS APPROVED REPORT Technologist: RT Jose (R) DORIS Nurse: Sangeeta Barbosa R.N. Procedure(s) performed: 1. Aortogram with bilateral lower extremity runoff via left transradial appr oach 2. Successful SENIOR VISUAL DESIGNER/stent placement to the right common iliac artery FLUORO TIME:25.1min DOSE: 307.44 Gycm2 Contrast: 166 ml Sedation Time: 118 min INDICATION The indication(s) include : Peripheral artery disease with claudication. PROCEDURE NARRATIVE After explaining the risks, benefits and alternative options, informed consent was obtained from kandace ent. Patient was brought to the cardiac Bag Sewer and his left wrist was prepped and draped in the usu al fashion after confirming a positive modified Omar's test. Arterial access was obtained in the lef t radial artery and a 6 Estonian sheath was inserted. Coronary angiography was performed that will be r eported separately. A 4 Estonian 150 cm PV catheter was then used to perform aortogram. Subsequently, with the tip placed in the common iliac artery selective lower extremity angiography was performed bi laterally. The following findings were noted. FINDINGS 1. No significant stenosis involving the distal descending aorta 2. Patent previously placed stent in the left common iliac artery. 70% stenosis involving the right common iliac artery. 3. No significant stenosis involving bilateral external iliac arteries. 4. No significant stenosis involving bilateral common femoral arteries. 5. The right superficial femoral artery showed 50% stenosis in the very distal segment. The left sup erficial femoral artery showed 60% proximal segment stenosis and a long 70-80% stenosis in the midseg ment. 6. No significant stenosis involving bilateral popliteal arteries. 7. 100% chronic total occlusions involving bilateral anterior tibial arteries proximally. There is t wo vessel runoff below the knee bilaterally involving the peroneal and posterior tibial arteries. INTERVENTION The PV catheter and the sheath in the left radial artery were exchanged to a Zoosk 119 cm sheath kory t was advanced under fluoroscopy guidance and the tip was positioned in the very proximal segment of the right common iliac artery. The stenosis in the right common iliac artery was crossed with a 0.018 inch Glidewire advantage. This was predilated with a 6 x 40 mm Terumo Crosstella balloon. Subsequent ly, this was treated with Terumo 8.0 x 60 mm Misago self-expanding stent that was then postdilated wi th 8 x 60 Terumo metacross balloon. Follow-up angiography showed resolution of the stenosis with good distal flow. Patient tolerated the procedure well. Hemostasis was achieved using TR band. There were no immediate complications. Conclusion 1. Bilateral lower extremity peripheral artery stenosis as described above. The previously placed st ent in the left common iliac artery was patent 2. Successful SENIOR VISUAL DESIGNER/stent placement to the right common artery Recommendations Plan for staged atherectomy/SENIOR VISUAL DESIGNER to the left superficial femoral artery in 2-4 weeks. Vascular risk factor modification Signed by : Russ Trivedi, Electronically Approved : 09/12/2019 13:08:13
[2019-09-12] MEDS: GABAPENTIN 100 MG CAPSULE. PO SCH ×2 (14:00→21:19)
[2019-09-12] MEDS ORDERED: ALBUTEROL SULFATE 2.5 MG/3 ML NEBU. NEB SCH (16:00)
[2019-09-12] MEDS: GLIMEPIRIDE 2 MG TABLET. PO SCH (16:50)
[2019-09-12] MEDS: INSULIN LISPRO 300 UNITS/3 ML VIAL. SQ SCH (17:00)
[2019-09-12] MEDS ORDERED: ALBUTEROL SULFATE 2.5 MG/3 ML NEBU. NEB PRN (19:15)
[2019-09-12] MEDS ORDERED: BUDESONIDE 0.5 MG/2 ML NEBU. NEB PRN (19:15)
[2019-09-12] MEDS ORDERED: BUDESONIDE 0.5 MG/2 ML NEBU. NEB SCH (20:00)
[2019-09-12] MEDS ORDERED: ATORVASTATIN CALCIUM 40 MG TABLET. PO SCH (21:00)
[2019-09-12] MEDS ORDERED: INSULIN GLARGINE SYRINGE. SQ SCH (21:00)
[2019-09-12] MEDS ORDERED: ZOLPIDEM 5 MG TABLET. PO ONE (21:15)
[2019-09-12] MEDS: METOPROLOL TART IMMED RELEASE 50 MG TABLET. PO SCH (21:20)
[2019-09-13 03:41] VITALS: BP 146/85
[2019-09-13 04:18] LABS: CALCIUM 8.9 mg/dL (8.5-10.1); CREATININE 1.5 mg/dL (0.7-1.3); GFR 48.1; POTASSIUM 4.3 mmol/L (3.5-5.1)
[2019-09-13 07:00] VITALS: BP 185/103
[2019-09-13] MEDS ORDERED: LEVOTHYROXINE 150 MCG TABLET PO SCH (07:30)
[2019-09-13] MEDS: GLIMEPIRIDE 2 MG TABLET. PO SCH (08:00)
[2019-09-13] MEDS ORDERED: CLOPIDOGREL BISULFATE 75 MG TABLET PO SCH (08:00)
[2019-09-13] MEDS: METOPROLOL TART IMMED RELEASE 50 MG TABLET. PO SCH (08:01)
[2019-09-13 08:06] VITALS: BP 185/91
[2019-09-13] MEDS: GABAPENTIN 100 MG CAPSULE. PO SCH (08:06)
[2019-09-13] MEDS: INSULIN LISPRO 300 UNITS/3 ML VIAL. SQ SCH (08:10)
[2019-09-13] MEDS ORDERED: FENOFIBRATE,MICRONIZED 134 MG CAPSULE PO SCH (09:00)
[2019-09-13] MEDS ORDERED: ASPIRIN 325 MG TABLET PO SCH (09:00)
[2019-09-13] MEDS ORDERED: NON FORMULARY ITEM (Liraglutide (Victoza 3-Pak) 1.8 MG) SQ SCH (09:00)
[2019-09-13] MEDS ORDERED: LOSARTAN POTASSIUM 50 MG TABLET. PO SCH (09:00)
[2019-09-13] MEDS ORDERED: SERTRALINE 50 MG TABLET. PO SCH (09:00)
[2019-09-17] MEDS ORDERED: RIVA10TA PO (17:53)
== END 2019-09-13 11:00 | disposition home or self-care (01) ==
LOC: CCL 07:01 → 2 NORTH 10:00
PROVIDERS: ADMIT Internal Medicine Cardiovascular Disease; ATTEND Internal Medicine Cardiovascular Disease
DX: I70.213 Atherosclerosis of native arteries of extremities with intermittent claudication, bilateral legs (principal); Z95.820 Peripheral vascular angioplasty status with implants and grafts; Z72.0 Tobacco use
CPT/HCPCS: 36415; 37221; 75625; 75710; 80048; 82962; 85027; 85610; 93454; 99152; 99153; C1725; C1769; C1876; C1892; C1894; G0378; G0379; J1644; J1815; J2250; J3010; J3490; Q9967

== ENCOUNTER 2019-10-10 10:49 | Observation (INO) | payer MEDICAID, OTHER ==
[~2019-10-10] VITALS: Ht 182.9 cm; Wt 104.3 kg
[~2019-10-10 10:49] MED LIST changes: +AMLO10TA8 PO; +FENO145T3 PO; +FLUT1DIS3 IH; +IODIXANOL 320 MG/ML 100 ML VIAL. ONE; +LOSA100T14 PO; +RIVA10TA PO; +SERT50TA PO; +TIOT18CA IH; +VENTOLIN HFA18 GM INH; +ZOLP10TA PO
[2019-10-10 11:37] LABS: HEMATOCRIT 35.8 % (39.0-53.0); HEMOGLOBIN 11.5 g/dL (13.0-17.5); RED BLOOD COUNT 4.57 x10^6/uL (4.30-5.70); RED CELL DISTRIBUTION WIDTH 18.5 % (11.5-14.5); WHITE BLOOD COUNT 5.7 x10^3/uL (4.0-11.0)
[2019-10-10 11:40] VITALS: BP 148/94
[2019-10-10 11:44] LABS: CALCIUM 9.8 mg/dL (8.5-10.1); CREATININE 1.3 mg/dL (0.7-1.3); GFR 56.7; POTASSIUM 4.3 mmol/L (3.5-5.1)
[2019-10-10 11:48] LABS: PROTHROMBIN TIME PATIENT 12.5 SEC (11.7-14.0)
[2019-10-10] MEDS ORDERED: GABA300C18 PO (11:55)
[2019-10-10] MEDS ORDERED: ISOS60TA2 PO (11:55)
[2019-10-10] MEDS ORDERED: ASPI-630 PO (11:55)
[2019-10-10] MEDS ORDERED: LIDOCAINE 1% PF 2 ML VIAL. ONE (12:55)
[2019-10-10] MEDS ORDERED: MIDAZOLAM HCL/PF 2 MG/2 ML VIAL. ONE (13:05)
[2019-10-10] MEDS ORDERED: HEPARIN for IV BOLUS 10,000 UNIT/10 ML VIAL. ONE ×2 (13:05→13:11)
[2019-10-10] MEDS ORDERED: fentaNYL PF VIAL 100 MCG/2 ML VIAL ONE (13:05)
[2019-10-10] MEDS ORDERED: VERAPAMIL 5 MG/2 ML VIAL. ONE (13:11)
[2019-10-10] MEDS ORDERED: NITROGLYCERIN 200 MCG/2 ML SYRINGE FOR CATH/VASC LAB. ONE (13:11)
[2019-10-10] MEDS ORDERED: IV 1/2 NORMAL SALINE 1,000 ML IV SCH (13:57)
--- NOTE | 2019-10-10 13:57 | PDOC ---
MODERATE SEDATION ASSESSMENT RISKS/ALTERNATIVES Risks/Alternatives Risks and alternatives of this type of sedation and procedure discussed with: RISK/ALTERNATIVES: Patient H & P ON CHART H & P H & P on chart and reviewed for co-morbid conditions and appropriate labs. H&P ON CHART: Yes STATUS PREG STATUS ASSESSED: N/A MEDS/ALLERGIES REVIEWED Meds/Allergies Reviewed Medications and Allergies including time and route of recently administered narcotics and sedatives. MEDS/ALLERGIES REVIEWED: Yes ASA RATING ASA RATING: II AIRWAY ASSESSMENT Airway Assessment Airway patency, oral function limitations, presence of caps, crowns, dentures, partials, and ability to extend neck assessed. AIRWAY ASSESSMENT: Yes MALLAMPATI SCORE MALLAMPATI SCORE: II PRE-SEDATION ASSESSMENT PRE-SEDATION ASSESSMENT: Yes RUSS LE MD Oct 10, 2019 13:57
[2019-10-10] MEDS ORDERED: NITROGLYCERIN SUBLINGUAL 0.4 MG BOTTLE OF 25. SL PRN (14:00)
[2019-10-10] MEDS ORDERED: IODIXANOL 320 MG/ML 100 ML VIAL. IART ONE (14:00)
[2019-10-10] MEDS ORDERED: fentaNYL PF VIAL 100 MCG/2 ML VIAL IV ONE (14:00)
[2019-10-10] MEDS ORDERED: VERAPAMIL 5 MG/2 ML VIAL. IART ONE (14:00)
[2019-10-10] MEDS ORDERED: MIDAZOLAM HCL/PF 2 MG/2 ML VIAL. IV ONE (14:00)
[2019-10-10] MEDS ORDERED: NITROGLYCERIN 200 MCG/2 ML SYRINGE FOR CATH/VASC LAB. IART ONE (14:00)
[2019-10-10] MEDS ORDERED: HEPARIN for IV BOLUS 10,000 UNIT/10 ML VIAL. IART ONE (14:00)
[2019-10-10] MEDS ORDERED: LIDOCAINE 1% PF 2 ML VIAL. INJ ONE (14:00)
[2019-10-10 14:02] VITALS: BP 153/89
[2019-10-10 14:10] VITALS: BP 142/84
[2019-10-10 14:25] VITALS: BP 142/83
[2019-10-10 14:40] VITALS: BP 155/93
[2019-10-10 14:55] VITALS: BP 151/87
--- NOTE | 2019-10-10 15:34 | NUR ---
Pt discharged to home with family. Instructions reviewed with pt and family. Pt tolerated PO and ambulated without difficulty. PIV dcd. TR band dcd and armboard reapplied.
--- NOTE | 2019-10-10 15:40 | NUR ---
bed 211 was assigned to pt name. During procedure decided pt did not need to be admitted so pt was recovered and discharged from outpatient at 1540.
--- NOTE | 2019-10-10 16:31 | CARD ---
MR#: [id number] Date of Study: 10/10/2019 Ordering Physician: RUSS TRIVEDI, Referring Physician: RUSS TRIVEDI Tech: Mariposa Weston APPROVED REPORT Patient StatusOUT-PATIENT Abstracter: Mariposa Weston Procedure(s) performed: Selective left lower extremity angiography via right transradial approach fl time: 5.5 mins dose: 28 gycm2 contrast: 41 ml sedation time: 37 mins HISTORY : 59-year-old male recently underwent ENVIRONMENTAL SPECIALIST to right common iliac and superficial femoral arteries. He presented today for possible staged ENVIRONMENTAL SPECIALIST to the left SFA.. PROCEDURE NARRATIVE After explaining the risks, benefits and alternative options, informed consent was obtained from kandace ent. Patient was brought to the cardiac Building Trades Teacher and his right wrist was prepped and draped in the us ual fashion after confirming a positive modified Omar's test. Arterial access was obtained in the [facility] radial artery and a 6 Polish sheath was inserted. A 6 Polish long PV catheter with sideholes was then advanced under fluoroscopy guidance and with the tip positioned in the left common femoral arter y, selective lower extremity angiography was performed. The following findings were noted. FINDINGS 1. No significant stenosis involving the left common femoral artery 2. 40% stenosis involving the proximal segment and along 50% stenosis involving the midsegment of the left superficial femoral artery 3. No significant stenosis involving popliteal artery 4. There is three-vessel runoff below the knee with moderate diffuse disease involving the left ante rior tibial artery Conclusion Patient was thought to have significant stenosis involving left superficial femoral artery on recent aortogram with runoff but selective angiography showed noncritical lesions with good distal flow. He does not need intervention on his left SFA at this time. Recommendations Vascular risk factor modification and regular exercise regimen Signed by : Russ Trivedi, Electronically Approved : 10/10/2019 16:31:35
== END 2019-10-10 15:01 | disposition home or self-care (01) ==
LOC: CCL 10:49 → INTOOBSV 13:30 → 2 NORTH 13:30
PROVIDERS: ADMIT Internal Medicine Cardiovascular Disease; ATTEND Internal Medicine Cardiovascular Disease
DX: I73.9 Peripheral vascular disease, unspecified (principal); I25.10 Atherosclerotic heart disease of native coronary artery without angina pectoris; E78.5 Hyperlipidemia, unspecified; I10 Essential (primary) hypertension; E11.9 Type 2 diabetes mellitus without complications; Z86.73 Personal history of transient ischemic attack (TIA), and cerebral infarction without residual deficits
CPT/HCPCS: 36247; 36415; 75710; 80048; 85027; 85610; 85730; 96374; 96375; 99152; 99153; C1769; C1892; G0378; G0379; J1644; J2250; J3010; J3490; Q9967

== ENCOUNTER → 2020-12-17 | Outpatient (CLI) | payer OTHER, MEDICAID ==
[~2020-12-17] MED LIST changes: +AMLO-186 PO; +AMLO-187 PO; -AMLO10TA8 PO; -AMLO5TAB10 PO; +GABA300C18 PO; -IODIXANOL 320 MG/ML 100 ML VIAL. ONE; -ISOS60TA2 PO; +ISOS60TA55 PO; -LISI-334 PO; +LISI20TA18 PO
== END ==
LOC: LAB 12:30
PROVIDERS: ATTEND Internal Medicine Cardiovascular Disease
DX: Z01.812 Encounter for preprocedural laboratory examination (principal); I73.9 Peripheral vascular disease, unspecified; Z20.822 Contact with and (suspected) exposure to COVID-19
CPT/HCPCS: U0003

== ENCOUNTER 2020-12-21 07:17 | Outpatient (CLI) | payer OTHER ==
[2020-12-21] VITALS (13 sets, daily range): BP systolic 118–143; BP diastolic 65–89
[~2020-12-21] VITALS: Ht 182.9 cm; Wt 108.9 kg
[2020-12-21] MEDS ORDERED: LIDOCAINE 1% Multi-Dose 20 ML VIAL. ONE (07:38)
[2020-12-21] MEDS ORDERED: IODIXANOL 320 MG/ML 100 ML VIAL. ONE (07:38)
[2020-12-21 07:46] LABS: HEMATOCRIT 38.2 % (39.0-53.0); HEMOGLOBIN 11.9 g/dL (13.0-17.5); RED BLOOD COUNT 4.92 x10^6/uL (4.30-5.70); RED CELL DISTRIBUTION WIDTH 18.7 % (11.5-14.5); WHITE BLOOD COUNT 6.8 x10^3/uL (4.0-11.0)
[2020-12-21 07:54] LABS: CREATININE 1.8 mg/dL (0.7-1.3); GFR 38.8; POTASSIUM 4.5 mmol/L (3.5-5.1)
[2020-12-21 07:57] LABS: PROTHROMBIN TIME PATIENT 13.4 SEC (11.7-14.0)
[2020-12-21] MEDS ORDERED: MIDAZOLAM HCL/PF 2 MG/2 ML VIAL. ONE ×2 (08:47→09:06)
[2020-12-21] MEDS ORDERED: VERAPAMIL 5 MG/2 ML VIAL. ONE ×2 (08:48→09:00)
[2020-12-21] MEDS ORDERED: fentaNYL PF VIAL 100 MCG/2 ML VIAL ONE (08:48)
[2020-12-21] MEDS ORDERED: NITROGLYCERIN 200 MCG/2 ML SYRINGE FOR CATH/VASC LAB. ONE (08:48)
[2020-12-21] MEDS ORDERED: HEPARIN for IV BOLUS 10,000 UNIT/10 ML VIAL. ONE (08:48)
[2020-12-21] MEDS ORDERED: MIDAZOLAM HCL/PF 2 MG/2 ML VIAL. IV ONE (09:30)
[2020-12-21] MEDS ORDERED: LIDOCAINE 1% Multi-Dose 20 ML VIAL. INJ ONE (09:30)
[2020-12-21] MEDS ORDERED: IODIXANOL 320 MG/ML 100 ML VIAL. IART ONE (09:30)
[2020-12-21] MEDS ORDERED: fentaNYL PF VIAL 100 MCG/2 ML VIAL IV ONE (09:30)
[2020-12-21] MEDS ORDERED: NITROGLYCERIN SUBLINGUAL 0.4 MG BOTTLE OF 25. SL PRN (09:45)
[2020-12-21] MEDS ORDERED: IV 1/2 NORMAL SALINE 1,000 ML IV SCH (09:45)
--- NOTE | 2020-12-21 09:45 | PDOC ---
MODERATE SEDATION ASSESSMENT RISKS/ALTERNATIVES Risks/Alternatives Risks and alternatives of this type of sedation and procedure discussed with: RISK/ALTERNATIVES: Patient H & P ON CHART H & P H & P on chart and reviewed for co-morbid conditions and appropriate labs. H&P ON CHART: Yes STATUS PREG STATUS ASSESSED: N/A MEDS/ALLERGIES REVIEWED Meds/Allergies Reviewed Medications and Allergies including time and route of recently administered narcotics and sedatives. MEDS/ALLERGIES REVIEWED: Yes ASA RATING ASA RATING: II AIRWAY ASSESSMENT Airway Assessment Airway patency, oral function limitations, presence of caps, crowns, dentures, partials, and ability to extend neck assessed. AIRWAY ASSESSMENT: Yes MALLAMPATI SCORE MALLAMPATI SCORE: II PRE-SEDATION ASSESSMENT PRE-SEDATION ASSESSMENT: Yes RUSS LE MD Dec 21, 2020 09:45
--- NOTE | 2020-12-21 10:07 | CARD ---
MR#: [id number] Date of Study: 12/21/2020 Ordering Physician: RUSS TRIVEDI, Referring Physician: RUSS TRIVEDI, Tech: RT Mary(R) APPROVED REPORT Patient StatusOUT-PATIENT Longwall Shearer Operator: RT Mary(R) Procedure(s) performed: Aortogram with bilateral lower extremity runoff FL TIME: 5.5 MINS DOSE: 125 GYCM2 CONTRAST: 78 ML MODERATE SEDATION: 44 MINS INDICATION FOR PROCEDURE The indication(s) include : Peripheral artery disease with claudication. PROCEDURE NARRATIVE After explaining the risk, benefits and alternative options, and informed consent was obtained from elizabet beck. He was brought to the cardiac Business Solutions Director and his right wrist and right groin were prepped and draped in the usual fashion. Initial plans to obtain right radial arterial access were abandoned sin ce patient had feeble radial arterial pulse probably secondary to multiple right radial arterial acce ss in the past. 20 cc of 2% lidocaine was infiltrated into the skin and subcutaneous tissue of the r ight groin for local anesthesia. Arterial access was obtained in the right common femoral artery and a 5 Grenadian sheath was inserted. A 5 Grenadian Omni Flush catheter was then positioned in the distal de scending aorta and aortoiliac angiography was performed. This catheter was then advanced over the ao rtic nyla with the help of a 0.035 inch angled Glidewire and with the tip of the catheter positione d in the left external iliac artery, selective left lower extremity angiography was performed. Contr ast injections were then performed through the sheath in the right groin for selective right lower ex tremity angiography. Patient tolerated the procedure well. Hemostasis was achieved using Mynx closu re device. There were no immediate complications. FINDINGS 1. The distal descending aorta showed 20% stenosis with small areas of ulcerated plaque. 2. The previously placed stents in bilateral common iliac arteries were widely patent. 3. No significant stenosis in bilateral external iliac arteries. 4. No significant stenosis involving bilateral common femoral arteries. 5. The deep femoral arteries bilaterally did not show any significant stenosis. The left superficia l femoral artery showed 40% stenosis in the proximal segment and the long 40-50% stenosis in the mids egment, unchanged compared to previous angiography. The right superficial femoral artery showed 30% stenosis in the proximal segment and otherwise widely patent. 6. The popliteal arteries bilaterally did not show any significant stenosis. 7. No significant stenosis noted in bilateral posterior tibial and peroneal arteries. The anterior tibial arteries bilaterally showed severe diffuse disease. Conclusion Widely patent previously placed stents in bilateral common iliac arteries. Severe diffuse disease in volving bilateral anterior tibial arteries with robust two-vessel runoff involving posterior tibial a nd peroneal arteries below the knee bilaterally. No significant stenosis needing intervention were n oted. Recommendations Patient's lifestyle limiting bilateral lower extremity pain cannot be explained by the findings above . Recommend evaluation for peripheral neuropathy. Vascular risk factor modification Signed by : Russ Trivedi, Electronically Approved : 12/21/2020 10:06:47
--- NOTE | 2020-12-21 12:39 | NUR ---
Discharge Note: LENORA JACKSON Discharge instructions and discharge home medications reviewed with Patient and a copy given. All questions have been answered and understanding verbalized. The following instructions and handouts were given: groin site care,adult moderate sedation Discontinued lines and drains: Peripheral IV intact. Patient discharged to Home or Self Care withSpousevia Wheelchair
== END 2020-12-21 12:39 | disposition home or self-care (01) ==
LOC: CCL 07:17
PROVIDERS: ATTEND Internal Medicine Cardiovascular Disease
DX: I73.9 Peripheral vascular disease, unspecified (principal); I25.10 Atherosclerotic heart disease of native coronary artery without angina pectoris; I10 Essential (primary) hypertension; E11.9 Type 2 diabetes mellitus without complications; E03.9 Hypothyroidism, unspecified; M19.90 Unspecified osteoarthritis, unspecified site; K21.9 Gastro-esophageal reflux disease without esophagitis; F41.9 Anxiety disorder, unspecified; Z86.73 Personal history of transient ischemic attack (TIA), and cerebral infarction without residual deficits; Z79.899 Other long term (current) drug therapy; Z79.82 Long term (current) use of aspirin; Z79.84 Long term (current) use of oral hypoglycemic drugs; Z98.890 Other specified postprocedural states; Z87.891 Personal history of nicotine dependence; Z88.8 Allergy status to other drugs, medicaments and biological substances
CPT/HCPCS: 36246; 36415; 75625; 75716; 80048; 85027; 85610; 99152; 99153; C1760; C1769; C1892; J1644; J2250; J3010; J3490; Q9967; G0269

== ENCOUNTER 2021-10-10 07:01 | Outpatient (CLI) | payer OTHER ==
[~2021-10-10] VITALS: Ht 182.9 cm; Wt 109.0 kg
[~2021-10-10 07:01] MED LIST changes: -ALIR150P SQ; +ALIR150P3 SQ; +MAGN400T48 PO; -MAGN400T5 PO; -OMEP40CA45 PO; +OMEP40CA7 PO
[2021-10-10 07:43] VITALS: BP 131/79
[2021-10-10] MEDS ORDERED: LIDOCAINE 2%/EPI 1:100,000 20 ML VIAL. ONE (08:20)
[2021-10-10] MEDS ORDERED: LIDOCAINE 2%/EPI 1:100,000 20 ML VIAL. INJ ONE (09:00)
[2021-10-10 09:05] VITALS: BP 163/78
--- NOTE | 2021-10-10 09:06 | CARD ---
MR#: [id number] Date of Study: 10/10/2021 Ordering Physician: RUSS TRIVEDI, Referring Physician: RUSS TRIVEDI, Tech: APPROVED REPORT EXAM Explantation of Biotronik biomonitor loop recorder fl time: 0.0 min dose: 0.05 gycm2 INDICATIONS TIA/CVA of uncertain etiology s/p loop recorder implantation presenting with battery depletion EXPLANTED DEVICES After explaining the risk, benefits and alternative options, informed consent was obtained from harry bolanos. Patient was brought to the cardiac Oil Burner Servicer And Installer and his left chest was prepped and draped in the usu al fashion. 10 cc of 2% lidocaine was infiltrated into the skin and subcutaneous tissues for local a nesthesia. An incision was made over the previous scar and using blunt dissection and cautery the po cket was opened and the previously placed Biotronik biomonitor loop recorder was successfully removed . The incision was closed in 1 layer. Hemostasis was secured. There were no immediate complication s. CONCLUSION Successful explantation of Biotronik biomonitor loop recorder Signed by : Russ Trivedi, Electronically Approved : 10/10/2021 09:05:59
--- NOTE | 2021-10-10 09:14 | NUR ---
Discharge Note: LENORA JACKSON Discharge instructions and discharge home medications reviewed with Patient and a copy given. All questions have been answered and understanding verbalized. The following instructions and handouts were given: Incision care Discontinued lines and drains: N/A Patient discharged to home with via personal vehicle.
== END 2021-10-10 09:10 | disposition home or self-care (01) ==
LOC: CCL 07:01
PROVIDERS: ATTEND Internal Medicine Cardiovascular Disease
DX: Z45.09 Encounter for adjustment and management of other cardiac device (principal); G45.9 Transient cerebral ischemic attack, unspecified; T82.118A Breakdown (mechanical) of other cardiac electronic device, initial encounter; I25.10 Atherosclerotic heart disease of native coronary artery without angina pectoris; I10 Essential (primary) hypertension; E11.9 Type 2 diabetes mellitus without complications; E03.9 Hypothyroidism, unspecified; K21.9 Gastro-esophageal reflux disease without esophagitis; Z86.73 Personal history of transient ischemic attack (TIA), and cerebral infarction without residual deficits; Z87.891 Personal history of nicotine dependence; Z79.82 Long term (current) use of aspirin; Z79.84 Long term (current) use of oral hypoglycemic drugs; Z79.899 Other long term (current) drug therapy; Z98.890 Other specified postprocedural states; Z88.8 Allergy status to other drugs, medicaments and biological substances; Z82.49 Family history of ischemic heart disease and other diseases of the circulatory system
CPT/HCPCS: 33286; J3490